=== PATIENT | male | born 1960 | race Caucasian/White ===

== ENCOUNTER 2025-05-27 16:41 | Inpatient (IN) | payer SELFPAY ==
--- OUTSIDE RECORDS SUMMARY | 2018-08-13 23:19 | XMS_ITS | Encounter Summary ---
Author Organization [employer] All iance Address [address] [place] [address] Care Team Providers Care Respiratory Care Technician Name Role Phone Add, Provider Not In System Primary Care Provide r Unavailable Add, Provider Not In System Unavailable Unav ailable Reason for Visit * Reason Comments Nausea NAUSEA ABDOMINAL VALE N Abdominal Pain Encounter Details Date Type Department Care Team (Late st Contact Info) Description 08/13/2018 11:19 PM EDT Emergency [facility] Emergency [address] [address] Frannie Wolf MD [address] [place] [address] Nausea with vomiting (Primary Dx); Epigastric pain; Essential (primary) hypertension; Cigarette nicotine dependence, uncomplicated; Other specified postprocedural states; Allergy status to other drugs, medicaments and biological substances status Social History Tobacco Use Types Packs/Day Years Used Date Smoking Tobacco: Former Cigarettes 0.5 40 Q uit: 2023 Passive Smoke Exposure: Past Smokeless Tobacco: Never Alcohol Use Standard Drinks/Week Comments Yes 0 (1 standard drink = 0.6 oz pure alcohol) States, I used to drink daily, but now I do it on occations. AUDIT-C Answer Date Recorded Frequency of Alcohol Consumption Never 07/29/2018 Average Number of Drinks Not on file 018 Frequency of Binge Drinking Not on file 07/13 Sex and Gender Information Value Date Recorded Sex Assigned at Not on file Legal Sex Male 9:56 AM EDT Gender Identity Male 11/07/2023 1:44 PM EST Sexual Orientation Straight 11/07/2023 1: 44 PM EST COVID-19 Exposure Response Date Recorded In the last 10 days, have yo u been in contact with someone who was confirmed or suspected to have Coronavirus/COVID-19? Unable to assess 01/29/2023 8:27 PM EDT documented as of this encounter Last Filed Vital Signs Vital Sign Reading Time Taken Comments Blood Pressure 111/70 08/14/2018 6:06 AM EDT Pulse 76 08/14/2018 6:06 AM EDT Temperature 36.5 C (97.7 F) 08/13/2018 11:25 PM EDT Respiratory Rate 20 08/14/2018 6:06 AM EDT Oxygen Saturation 100% 08/14/2018 6:06 AM EDT Inhaled Oxygen Concentration - - Weight 95.3 kg (210 lb) 08/13/2018 11:25 PM EDT Height - - Body Mass Index 31.93 04/19/2018 7:00 AM EDT documented in this encounter Functional Status * (RETIRED) Are you deaf or do you have difficulty hearing? Answer Date of Assessment Author No 04/19/2018 7:00 AM Berlin Fontenot RN * (RETIRED) Are you blind or do you have difficulty seeing? Answer Date of Assessment Author No 04/19/2018 7:00 AM Berlin Fontenot RN * (RETIRED) Do you have difficulty walking or climbing stairs? Answer Date of Assessment Author No 04/19/2018 7:00 AM Berlin Fontenot RN * (RETIRED) Do you have difficulty dressing or bathing? Answer Date of Assessment Author No 04/19/2018 7:00 AM Berlin Fontenot RN * (RETIRED) Because of a physical, mental, or emotional condition, do you have difficulty doing errands such as visiting a doctor's office or shopping? Answer Date of Assessment Author No 04/19/2018 7:00 AM Berlin Fontenot RN documented as of this encounter Mental Status * (RETIRED) Because of a physical, mental, or emotional condition, do you have serious difficulty concentrating, remembering, or making decisions? Answer Entry Date Author No 04/19/2018 7:00 AM Berlin Fontenot RN documented in this encounter ED Notes * Frannie Wolf MD - 08/13/2018 11:46 PM EDT The patient was seen primarily by me. ED nursing record was reviewed. Select prior records as available electronically through the Epic record were reviewed. HPI: Larry Doshi is a 57 year old male patient with h/o HTN, depression, bipolar, who presents withepigastric abdominal pain with nausea. Pain started suddenly this afternoon, an hour or so after eating prepared chicken in a box. He states he has been dry heaving several times since then, with epigastric pain. No associated vomiting, chest pain, shortness of breath. ROS: Pertinent positives were reviewed as per the HPI above. All other systems were reviewed and are negative. Larry Doshi Language of care: Occitan PCP: NON STAFF PROVIDER Mode of arrival to ED: Self. Arrival time: 08/13/2018 11:19 PM Chief complaint: Nausea (NAUSEA ABDOMINAL PAIN) and Abdominal Pain Past Medical History/Problem list: Past Medical History: No date: Bipolar disorder (HCC) No date: Depression No date: HTN (hypertension) No date: Musculoskeletal disorder No date: Odynophagia No date: Substance abuse (HCC) No date: Suicide and self-inflicted injury (HCC) No date: Wears eyeglasses Comment: glaucoma Patient Active Problem List: Mood altered (HCC) Alcohol abuse Hyperopia with astigmatism and presbyopia Depression Odynophagia Cocaine abuse (HCC) Essential hypertension Chronic pain of right knee Dyslipidemia Bipolar 2 disorder (HCC) Past Surgical History: Past Surgical History: No date: ANES NERVE MUSC TENDON FASCIA&BURSA KNEE&/POPLT Social History: Social History Socioeconomic History ??? Marital status: Single Spouse name: Not on file ??? Number of children: Not on file ??? Years of education: Not on file ??? Highest education level: Not on file Social Needs ??? Financial resource strain: Not on file ??? Food insecurity - worry: Not on file ??? Food insecurity - inability: Not on file ??? Transportation needs - medical: Not on file ??? Transportation needs - non-medical: Not on file Occupational History ??? Not on file Tobacco Use ??? Smoking status: Current Every Day Smoker Packs/day: 0.25 Types: Cigarettes Last attempt to quit: 02/15/2016 Years since quittin.4 ??? Smokeless tobacco: Never Used Substance and Sexual Activity ??? Alcohol use: Yes Alcohol/week: 6.0 oz Types: 5 Shots of liquor, 5 Cans of beer per week Frequency: Never Comment: Denies drinking last few months ??? Drug use: No Comment: Denies useage last 3 months ??? Sexual activity: Not Currently Other Topics Concern ??? Not on file Social History Narrative Homeless x 2 years Allergies: Review of Patient's Allergies indicates: Aripiprazole Anxiety Immunizations: There is no immunization history on file for this patient. Medications: Prior to Admission Medications Prescriptions Last Dose Informant Patient Reported? Taking? Atorvastatin Calcium (LIPITOR PO) Yes Yes Sig: Take by mouth HydrOXYzine Pamoate (VISTARIL PO) Yes Yes Sig: Take by mouth OXcarbazepine (TRILEPTAL) 150 MG tablet No Yes Sig: Take 1 tablet by mouth every morning OXcarbazepine (TRILEPTAL) 300 MG tablet No No Sig: Take 1 tablet by mouth nightly citalopram (CELEXA) 40 MG tablet Yes Yes Sig: Take 40 mg by mouth daily escitalopram (LEXAPRO) 10 MG tablet No No Sig: Take 1 tablet by mouth daily gabapentin (NEURONTIN) 300 MG capsule No No Sig: Take 2 capsules by mouth 3 (three) times daily gabapentin (NEURONTIN) 400 MG capsule No No Sig: Take 2 capsules by mouth 2 (two) times daily Patient taking differently: Take 600 mg by mouth 2 (two) times daily lisinopril (PRINIVIL,ZESTRIL) 10 MG tablet No Yes Sig: Take 1 tablet by mouth daily Patient taking differently: Take 20 mg by mouth daily Facility-Administered Medications: None Physical Exam (ED Bed SH ROOM 07/22): Patient Vitals for the past 99 hrs: BP Temp Pulse Resp SpO2 Weight 08/13/18 2325 112/85 97.7 ??F 86 20 100 % 95.3 kg (210 lb) GENERAL: WDWN, no acute distress, non-toxic appearance. SKIN: Slightly diaphoretic. HEAD: NCAT. PERRL, EOMI. Posterior pharynx is normal. Mildly dry mucous membranes. CHEST: Lungs are clear to auscultation bilaterally, without wheezing or rales. No chest wall tenderness. HEART: RRR. No murmurs. ABDOMEN: Soft, tender in the epigastrium only, nondistended. No involuntary guarding or rebound. EXTREMITIES: No obvious deformities. Warm and well perfused. No cyanosis, no edema. NEUROLOGIC: Alert, speaking in clear sentences, and moving all extremities. Normal gait without ataxia. PSYCHIATRIC: Appropriate for age, time of day, and situation. Medications Given in the ED: Medications lidocaine (XYLOCAINE) 2 % viscous solution 10 mL (10 mLs Mouth/Throat Given 08/14/18 0004) aluminum-magnesium hydroxide (MAALOX) 200-200 mg/5 mL suspension 30 mL (30 mLs Oral Given 08/14/18 0005) ondansetron (ZOFRAN) injection 4 mg (4 mg Intravenous Given 08/13/18 2344) Radiology Results: N/A Lab Results (abnormal results only): Labs Reviewed SERUM DRUG SCREEN - Abnormal; Notable for the following components: Result Value ETHANOL 14 (*) All other components within normal limits Narrative: Tests added: SDS by JAIR on 08/13/18 at 2351 by [email or web address]. BASIC METABOLIC PANEL Narrative: Tests added: SDS by JAIR on 08/13/18 at 2351 by [email or web address]. HOLD GREEN TOP TUBE HOLD PURPLE TOP TUBE LAB ADD ON/WRITE IN TEST Other Results (e.g. ECG): Normal sinus rhythm at 81. No acute ischemic changes. ED Course and Medical Decision-makin57 year old male patient with nausea and epigastric pain. I suspect symptoms are due to his food ingestion shortly prior to symptom onset. He was treated with antiemetics and antacids with significant improvement in discomfort. As he is a little diaphoretic with epigastric pain, EKG was obtained, though this is reassuring without any evidence of ischemia. He appears stable for discharge. Patient/family educated on diagnosis(es); he states understanding and agrees with plan of care. Reasons to return to the ED were reviewed in detail. He agrees with this plan and disposition. Condition on Discharge: Improved and Stable Diagnosis/Diagnoses: Non-intractable vomiting with nausea, unspecified vomiting type Discharge Prescriptions: New Prescriptions FAMOTIDINE (PEPCID) 20 MG TABLET Take 1 tablet by mouth 2 (two) times daily For stomach acid for 10days Frannie Wolf MD Attending Physician [facility] Department of Emergency Medicine This Emergency Department patient encounter note was created using voice- recognition software and in real time during the ED visit. documented in this encounter Miscellaneous Notes * Narrator Note - Amisha White RN - 08/14/2018 6:07 AM EDT Patient Disposition Patient education for diagnosis, medications, diet and follow-up with PCP. Return to ED for new, worsening or concerning symptoms. Patient left ED 6:07 AM. Patient received written instructions. Chyron Operator to provide instructions: No Patient belongings with patient: YES Have all existing LDAs been addressed? Yes Have all IV infusions been stopped? N/A Discharged to home. Pt ambulatory out of dept. * Narrator Note - Amisha White RN - 08/14/2018 6:05 AM EDT Pt woken for discharge assessment. Pt declined offer for fluids/food. VS obtained and IV removed. * Narrator Note - Amisha White RN - 08/14/2018 3:08 AM EDT Pt woke for VS. Pt states nausea and abdominal pain are resolved. Pt states I feel so much better. Pt requests to stay in ED until 5 am when buses are running. Pt provided with blankets and lights turned off. * Narrator Note - Amisha White RN - 08/14/2018 2:56 AM EDT Pt continues to rest quietly with eyes closed. Respirations regular, even and unlabored. Pt will continue to be monitored. * Narrator Note - Amisha White RN - 08/14/2018 1:40 AM EDT Pt resting quietly with eyes closed awaiting MD re-evaluation. * ED Triage Note - Amisha White RN - 08/13/2018 11:28 PM EDT Pt states he tae pre-prepared chicken this afternoon about 2 pm and about 4 pm began to nausea and intermittent abdominal cramping. Pt denies fever, vomiting or diarrhea. documented in this encounter Plan of Treatment Not on file documented as of this encounter Procedures Procedure Name Priority Date/Time Associated Diagnosis Comments EKG Routine 08/13/2018 11:38 PM EDT SERUM DRUG SCREEN Routine 08/13/2018 11: 32 PM EDT HOLD PURPLE TOP TUBE Routine 08/13/2018 11:32 PM EDT HOLD GREEN TOP TUBE Routine 08/13/2018 1 1:32 PM EDT BASIC METABOLIC PANEL Routine 08/13/2018 11:32 PM EDT documented in this encounter Results * EKG : Initial (08/13/2018 11:38 PM EDT) [place] [address] CARDIOVASCULAR LABORATORY [phone] PATIENT: KADE DOSHI : 1960 AGE: 57 SEX: M [place] [facility] [place] [id number] STATUS: DEP ER DATE: 08/13/18 09 ORD PHY: FRANNIE WOLF MD PCP: Report Status: Signed EKG REPORT Test Reason : Blood Pressure : / mmHG Vent. Rate : 081 BPM Atrial Rate : 081 BPM P-R Int : 174 ms QRS Dur : 084 ms QT Int : 394 ms P-R-T Axes : 042 030 000 degrees QTc Int : 457 ms Normal sinus rhythm Normal ECG When compared with ECG of 19-APR-2018 00:21, No significant change was found Referred By: FRANNIE WOLF Confirmed By:DANISH Tavarez t: ADAM Report #: [id number] CARDIOVASCULAR DEPARTMENT 08/13/2018 11:3 8 PM EDT 08/15/2018 9:21 AM EDT us Frannie Wolf MD RAD EKG OR DEVICE ORDERABLES Final Result [facility] RAD[facility]OLOG[facility] CARDIOVASCULAR DEPARTMENT * (ABNORMAL) Serum Drug Screen (08/13/2018 11:32 PM EDT) SALICYLATE < 2.8 2.8 - 20.0 mg/dL [facility] LABORATORY [facility] ACETAMINOPHEN < 2 10 - 30 ug/mL [facility] ETHANOL 14(H) 0 - 3 mg/dL [facility] LAB[facility] 08/13/2018 11:3 2 PM EDT 08/13/2018 11:47 PM EDT Narrative [facility] - 08/14/2018 12:10 AM EDT Tests added: SDS by JAIR on 08/13/18 at 2351 by [email or web address]. us Frannie Wolf MD LABORATORY Final Result [facility] [address] [place] [address], * Hold Purple Top Tube (08/13/2018 11:32 PM EDT) HOLD PURPLE TOP TUBE RECEIVED IN HEMATOL [facility] LABORATORY [facility] BLOOD SPECIMEN / Unknown 08/13/2018 11:32 PM EDT 08/13/2018 11:47 PM EDT us Frannie Wolf MD LABORATORY Final Result [address] [address], [place] * Hold Green Top Tube (08/13/2018 11:32 PM EDT) HOLD GREEN TOP TUBE RECEIVED IN CHEM [facility] BLOOD SPECIMEN / Unknown 08/13/2018 11:32 PM EDT 08/13/2018 11:47 PM EDT Frannie Wolf MD LABORATORY Final Result Performing Organization Address City/[facility]/ZIP Co de Phone Number [address] [address], [place] * Basic Metabolic Panel (08/13/2018 11:32 PM EDT) SODIUM 141 136 - 145 mmol/L [facility] POTASSIUM 4.6 3.5 - 5.1 mmol/L [facility] CHLORIDE 100 98 - 107 mmol/L [facility] CARBON DIOXIDE 26 21 - 32 mmol/L [facility] ANION GAP 15 5 - 15 mmol/L [facility] CALCIUM 9.0 8.5 - 10.1 mg/dL [facility] Glucose Random 88 74 - 160 mg/dL [facility] BUN (UREA NITROGEN) 17 7 - 18 mg/dL [facility] CREATININE 1.0 0.7 - 1.2 mg/dL [facility] ESTIMATED GLOMERULAR FILT RATE > 60 >60 ML/MIN [facility] Comment: The estimated GFR derived from the MDRD Study equation has not been validated for use with the elderly (over 70 years of age), women, patients with serious comorbid conditions, or persons with extremes of body size, muscle mass, or nutritional status. Application of the equation to these patient groups may lead to errors in GFR estimation. Serum specimen (specimen) BLOOD SPECIMEN / Unknown 08/13/2018 11:32 PM EDT 08/13/2018 11:47 PM EDT Narrative [facility] 08/14/2018 12:10 AM EDT Tests added: SDS by JAIR on 08/13/18 at 2351 by [email or web address]. us Frannie Wolf MD LABORATORY Final Result [facility] LABORATORY [address] [address], documented in this encounter Visit Diagnoses Diagnosis Nausea with vomiting- Primary Epigastric pain Abdominal pain, epigastric Essential (primary) hypertension Unspecified essential hypertension Cigarette nicotine dependence, uncomplicated Tobacco use disorder Other specified postprocedural states Allergy status to other drugs, medicaments and biological substances status documented in this encounter Administered Medications Inactive Administered Medications - up to 3 most recent administrations Medication Order MAR Action Action Date Dose Rate Site aluminum-magnesium hydroxide (MAALOX) 200-200 mg/5 mL suspension 30 mL 30 mL, Oral, ONCE, On Gem 08/13/18 at 2348, For 1 dose Given 08/14/2018 12:05 AM EDT 30 mLs lidocaine (XYLOCAINE) 2 % viscous solution 10 mL 10 mL, Mouth/Throat, ONCE, On Gem 08/13/18 at 2348, For 1 dose Given 08/14/2018 12:04 AM EDT 10 mLs ondansetron (ZOFRAN) injection 4 mg 4 mg, Intravenous, ONCE, On Gem 08/13/18 at 2348, For 1 dose Given 08/13/2018 11:44 PM EDT 4 mg documented in this encounter Active and Recently Administered Medications Additional Health Concerns Infection Onset Date Last Indicated Resolved Time Rule out Influenzae 11/13/2019 11/13/2019 11/13/19 20 6:32 PM EST Rule out COVID-19 05/20/2020 05/20/2020 05/20/2020 7:07 PM EDT Rule out COVID-19 01/13/2021 01/13/2021 01/13/2021 11:29 AM EDT Rule out COVID-19 01/13/2021 01/13/2021 01/13/2021 1:23 PM EDT Rule out COVID-19 02/23/2021 02/23/2021 02/23/2021 11:40 AM EDT Rule out COVID-19 03/27/2021 03/27/2021 03/27/2021 5:48 AM EDT Rule out RSV 01/16/2022 01/17/2022 01/17/2022 2:02 AM EDT Rule out Influenzae 01/16/2022 01/17/2022 01/18/20 2:02 AM EDT Rule out COVID-19 01/16/2022 01/17/2022 01/17/2022 2:02 AM EDT Rule out COVID-19 06/11/2022 06/11/2022 06/11/2022 8:58 PM EDT Rule out COVID-19 07/30/2022 07/30/2022 07/31/2022 12:12 AM EDT Rule out COVID-19 08/15/2022 08/15/2022 08/15/2022 1:25 PM EDT Rule out COVID-19 08/28/2022 08/28/2022 08/29/2022 2:05 AM EST Rule out COVID-19 09/01/2022 09/02/2022 09/02/2022 12:49 PM EST Rule out RSV 09/02/2022 09/02/2022 09/02/2022 1:12 PM EST Rule out Influenzae 09/02/2022 09/02/2022 09/02/20 1:12 PM EST Rule out COVID-19 09/02/2022 09/02/2022 09/02/2022 1:12 PM EST COVID-19 Comment:Pt test results reviewed and discussed with team, no signs or symptoms noted (per chart) will not require enhanced droplet precautions at this time. Please use standard precautions for all patient encounters. 09/05/2022 09/05/2022 09/06/2022 10:40 AM EST Rule out COVID-19 11/04/2022 11/04/2022 11/04/2022 5:42 PM EST Rule out COVID-19 11/22/2022 11/22/2022 11/23/2022 4:06 AM EST Rule out COVID-19 12/23/2022 12/23/2022 12/23/2022 1:02 PM EDT Rule out COVID-19 01/09/2023 01/09/2023 01/09/2023 3:10 AM EDT Rule out COVID-19 01/29/2023 01/29/2023 01/29/2023 11:11 AM EDT Rule out COVID-19 02/15/2023 02/15/2023 02/15/2023 9:22 AM EDT Rule out COVID-19 02/18/2023 02/18/2023 02/18/2023 10:32 PM EDT Rule out COVID-19 03/08/2023 03/08/2023 03/08/2023 11:05 AM EDT Rule out COVID-19 03/15/2023 03/15/2023 03/15/2023 5:08 AM EDT Rule out COVID-19 03/25/2023 03/25/2023 03/25/2023 5:41 PM EDT Rule out COVID-19 06/29/2023 06/29/2023 06/29/2023 11:58 AM EDT Rule out COVID-19 10/10/2023 10/10/2023 10/10/2023 9:58 PM EST Rule out COVID-19 11/07/2023 11/07/2023 11/07/2023 4:05 PM EST Rule out RSV 11/25/2023 11/25/2023 11/25/2023 6:00 AM EST Rule out Influenzae 11/25/2023 11/25/2023 11/25/19 6:00 AM EST Rule out COVID-19 11/25/2023 11/25/2023 11/25/2023 6:00 AM EST Rule out COVID-19 12/20/2023 12/20/2023 12/21/2023 1:49 AM EST Rule out COVID-19 01/16/2024 01/16/2024 01/16/2024 4:18 AM EDT Rule out COVID-19 01/29/2024 01/29/2024 01/29/2024 4:15 AM EDT Rule out COVID-19 02/14/2024 02/14/2024 02/14/2024 12:38 PM EDT Rule out COVID-19 03/11/2024 03/11/2024 03/11/2024 12:42 PM EDT Rule out COVID-19 05/18/2024 05/18/2024 05/18/2024 12:26 AM EDT Rule out COVID-19 06/08/2024 06/08/2024 06/09/2024 1:55 AM EDT COVID-19 Comment:Repeat antigen on June 17, 2024 negative. 06/08/2024 06/08/2024 06/17/2024 3:43 PM E DT Rule out COVID-19 06/09/2024 06/09/2024 06/09/2024 4:00 AM EDT Rule out COVID-19 06/17/2024 06/17/2024 06/17/2024 3:39 PM EDT documented as of this encounter Care Teams Respiratory Care Technician Relationship Specialty Start Date End Date Add, Provider Not In System PCP - General 01/07/1307/16 Add, Provider Not In System PCP - Insurance PCP 02/11/17 02/28/20 documented as of this encounter
--- OUTSIDE RECORDS SUMMARY | 2025-05-27 16:46 | XMS_ITS | Clinical Summary ---
Author Organization Leona Peñaloza [facility] Address [address] [place] [id number] Care Team Providers Care Automobile Service Writer Name Role Phone Minesh Lozoya MD Primary Care Provi jamin Minesh Lozoya MD Unavailable [phone] Peng Espitia MD Unavailable [phone] Sanya Kim MD Unavailable [phone] Amisha Rock MD Unavailable [phone] Allergies Active Allergy Reactions Criticality Noted Date Comments Aripiprazole Other (See Comments) 02/14/2018 States he felt terrible on it. Made me sick Unable to be more specific. Aripiprazole Unknown Reaction Type: AdvReac; Severity: Unknown Fluoxetine Unknown Reaction Type: AdvReac; Severity: Unknown Lamotrigine Other (See Comments) Medium 09/14/2021 Spacy feeling Olanzapine Other (See Comments) Medium 09/14/2021 Spacy feeling Fluoxetine Hallucinations 09/14/2019 It puts me on another planet. Risperidone Unknown Reaction Type: AdvReac; Severity: Unknown Risperidone Mental Status Change,Unknown,Other (See Comments) Low 06/06/2020 Other reaction(s): Drowsiness Altered mental status Altered mental status Level of certainty: Moderately Certain Identified As: From Risperdal Other Reaction(s): Anxiety Venlafaxine Unknown Reaction Type: Allergy; Severity: Unknown Medications * This document contains information received from the source organization and may not represent a complete record from that organization. celecoxib (CeleBREX) 100 MG capsuleIndicati ons:osteoarthri tis Take 1 capsule (100 mg total) by mouth 2 times a day as needed (osteoarthritis) . 30 capsule 4 Active DULoxetine (CYMBALTA) [address] capsule Take 2 capsules (120 mg total) by mouth daily. 30 capsule 4 Active folic acid (FOLVITE) 1 MG tablet Take 1 tablet (1 mg total) by mouth daily. 30 tablet 4 Active latanoprost (XALATAN) 0.005 % ophthalmic solution Administer 1 drop to both eyes at bedtime. 14 mL 4 Active lisinopriL (ZESTRIL) 20 MG tablet Take 1 tablet (20 mg total) by mouth daily. 15 tablet 4 Active rOPINIRole (REQUIP) 3 MG tablet Take 1 tablet (3 mg total) by mouth at bedtime. 15 tablet 4 Active atorvaSTATin (LIPITOR) 40 MG tablet Take 1 tablet (40 mg total) by mouth at bedtime. 1 Active lidocaine 4 % PtMd patch Place 2 patches on the skin daily. 28 patch 4 Active gabapentin (NEURONTIN) 400 MG capsule Take 1 capsule (400 mg total) by mouth 3 times a day. Active naltrexone ER (VivitroL) 380 mg SERR injection Inject 4 mL (380 mg total) into gluteal muscle once. . Administer deep IM into the gluteal muscle; must inject dose using one of the provided needles for administration. Use either the 1.5-inch needle (for very lean patients) or the 2-inch needle (for patients with a larger amount of subcutaneous tissue overlying the gluteal muscle). Active atorvaSTATin (LIPITOR) 40 MG tablet Take 1 tablet (40 mg total) by mouth at bedtime for 30 days. 30 tablet 4 Active celecoxib (CeleBREX) 100 MG capsule Take 1 capsule (100 mg total) by mouth every morning & every evening for 30 days. 60 capsule 4 Active DULoxetine (CYMBALTA) [address] capsule Take 1 capsule (60 mg total) by mouth every morning & every evening for 30 days. 60 capsule 4 Active latanoprost (XALATAN) 0.005 % ophthalmic solution Administer 1 drop to both eyes at bedtime for 30 days. 1 mL 4 Active propranoloL (INDERAL) 20 MG tablet Take 1 tablet (20 mg total) by mouth 3 times a day for 30 days. 90 tablet 4 Active rOPINIRole (REQUIP) 3 MG tablet Take 1 tablet (3 mg total) by mouth at bedtime for 30 days. 30 tablet 4 Active lisinopriL (ZESTRIL) 20 MG tablet Take 1 tablet (20 mg total) by mouth every morning for 30 days. 30 tablet 4 Active lidocaine (LMX) 4 % cream Apply one (1) application topically three times a day, as needed 30 g 11/07/2024 12:18 PM EST 5 Active Active Problems Problem Noted Date Diagnosed Date Severe episode of recurrent major depressive disorder, without psychotic features 09/20/2024 Alcohol dependency 09/20/2024 Depression 09/19/2024 Aneurysm of ascending aorta without rupture 06/14 Overview (10/28/2024): Needs dedicated imaging fall/winter 2024 Gastroesophageal reflux disease 06/18/2024 Cocaine abuse 04/24/2023 Nicotine dependence 04/24/2023 URI (upper respiratory infection) 04/24/2023 Allergic rhinitis 04/24/2023 Anxiety and depression 04/23/2023 Benzodiazepine abuse 11/30/2021 Severe episode of recurrent major depressive disorder, without psychotic features 09/13/2021 Unspecified mood (affective) disorder 11/08/2020 Anxiety disorder, unspecified 05/29/2020 Overview (06/30/2024): Add'l ICD-10 Code(s): F32.9 - Edited by NYASIA PURDY MD on 05/29/2020 Restless legs syndrome 05/23/2020 Mixed hyperlipidemia 05/23/2020 Primary osteoarthritis of both knees 09/15/2019 Substance induced mood disorder 09/14/2019 Cocaine abuse 12/17/2018 Alcohol use disorder, severe, dependence 016 Major depressive disorder, recurrent 10/06/2016 Essential hypertension 10/06/2016 Open-angle glaucoma 10/06/2016 Chronic obstructive pulmonary disease 05/06/2016 Resolved Problems Problem Noted Date Diagnosed Date Resolved Date COVID-19 04/18/2023 10/28/2024 Decreased visual acuity 05/23/202010/14 Overview (05/23/2020): Lost his prescription pair of eye glasses History of prolonged Q-T interval on ECG 09/15/2019 11/09/2020 Disease characterized by remigio truction of skeletal muscle 05/14/2019 10/28/2024 Overview (10/28/2024): Last Assessment & Plan: CPK continues to downtrend. Related to recent sun and heat exposure, alcohol and poor PO intake. -no need to trend further -holding statin Sepsis 05/13/2019 10/28/2024 Swelling of joint, knee, right 12/17/2018 11/09/2020 Suicide attempt 10/19/2018 10/28/2024 Overview (10/28/2024): Last Assessment & Plan: Patient reports several weeks of depression in the context of substance abuse and social stressors (homeless, finances). He has presented very frequently with SI and per last evaluation by psychiatry is at a chronically elevated risk for suicide given his prior attempts. - maintain section 12 - psych c/s: recommending inpt placement (he is medically cleared for this - spoke w Poison Control 11/9 AM who agrees usually ~8h monitoring, and he is past this) -could repeat EKG in AM tmw for qtc recheck, but has been <500 while here Lisinopril overdose: - monitor BMP bid for now (Cr mildly elevated at present) - monitor BP, IVFs prn or if unresponsive would need pressors Gabapentin overdose: - seizure precautions Atarax overdose: - Monitor for anticholinergic symptoms (tachycardia, urinary retention, mydriasis)- none thus far Encounters * This document contains information received from the source organization and may not represent a complete record from that organization. Date Type Department Care Team Description 05/04/2025 10:15 PM EDT - 05/05/2025 5:18 AM EDT Emergency [facility] Emergency Department [address] [place] [id number] Shahid Flores MD Anxiety and depression [F41.9, F32.A] (Primary Dx); Cocaine abuse (HCC) [F14.10]; Alcohol abuse [F10.10]; Alcohol use disorder; Substance use disorder Discharge Disposition: Home or Self Care 05/04/2025 Travel 04/30/2025 12:23 AM EDT - 04/30/2025 3:13 AM EDT Emergency [facility] Emergency Department [address] [address] Kaleigh Pickens MD Inflamed scrotum (Primary Dx) Discharge Disposition: Elopement 04/30/2025 Travel 04/19/2025 1:24 AM EDT - 04/19/2025 3:06 PM EDT Hospital Encounter [facility] Emergency Department [address] [place] [id number] Capo Erickson MD Ullman, Edward, MD Alcoholic intoxication without complication (HCC) (Primary Dx) Discharge Disposition: Elopement 04/17/2025 1:20 AM EDT - 04/18/2025 12:15 PM EDT Hospital Encounter [facility] Emergency Department [address] [address] Se Burris MD Fritz, Christie L, MD Brown, Taylor E, MD Tibbles, Carrie D, MD Simpson, Michael D, MD Kolikof, Joshua, MD Alcohol abuse with intoxication (HCC) (Primary Dx); Suicidal ideation Discharge Disposition: Home or Self Care 04/17/2025 Travel 04/04/2025 7:44 PM EDT - 04/05/2025 1:19 AM EDT Emergency [facility] Emergency Department [address] [place] [id number] Vicente Rodriguez MD Dagan, Alon, MD Unspecified depressive disorder (Primary Dx); Alcohol use disorder; Stimulant use disorder; Depression, unspecified depression type Discharge Disposition: Home or Self Care 04/04/2025 Travel from Last 3 Months Immunizations Immunization Administration Dates Next Due PPD Test 12/21/2018 Family History Medical History Relation Comments Alcohol abuse Father d.58 Depression Father COPD Mother d. 78 Depression Mother Substance Use Mother Relation Status Comments Father Mother Social History Tobacco Use Types Packs/Day Years Used Date Smoking Tobacco: Some Days Cigarettes 0.5 1.6 Started: 2023 Smokeless Tobacco: Never Tobacco Cessation:Ready to Q uit: No; Counseling Given: Yes Comments:Declines nicotine replacement Alcohol Use Standard Drinks/Week Comments Yes 6 (1 standard drink = 0.6 oz pure alcohol) Quart of vodka and six to eight beers once/twice a week Humiliation, Afraid, Rape, and Kick questionnair e Answer Date Recorded Within the last year, have y ou been afraid of your partner or ex-partner? Patient declined 04/17/2025 Emotionally Abused Not on file 04/17/2025 Physically Abused Not on file 04/17/2025 Sexually Abused Not on file 04/17/2025 Overall Financial Resource Strain (CARDIA) Answe r Date Recorded How hard is it for you to pa y for the very basics like food, housing, medical care, and heating? Patient declined 04/17/2025 Hunger Vital Sign Answer Date Recorded Within the past 12 months, y ou worried that your food would run out before you got the money to buy more. Patient declined Ran Out of Food in the Last Year Not on file 04/17/2025 PRAPARE - Transportation Answer Date Re corded In the past 12 months, has l ack of transportation kept you from medical appointments or from getting medications? Patient declined 04/17/2025 In the past 12 months, has l ack of transportation kept you from meetings, work, or from getting things needed for daily living? Patient declined 04/17/2025 Housing Stability Vital Sign Answer Ronny e Recorded In the last 12 months, was t here a time when you were not able to pay the mortgage or rent on time? Patient declined 04/17/20 25 Number of Times Moved in the Last Year Not on fi le 04/17/2025 At any time in the past 12 m [facility] [place], were you homeless or living in a [facility] (including now)? Patient declined 04/17/2025 [facility] Utilities Answer Date Recorded In the past 12 months has th e electric, gas, oil, or water company threatened to shut off services in your home? Patient declined 04/17/2025 Food Insecurity Answer Date Recorded Within the past 12 months, y ou worried that your food would run out before you got the money to buy more. Patient declined Ran Out of Food in the Last Year Not on file 04/17/2025 Intimate Partner Violence Answer Date R ecorded Emotionally Abused Not on file 04/17/2025 Within the last year, have y ou been afraid of your partner or ex-partner? Patient declined 04/17/2025 Physically Abused Not on file 04/17/2025 Sexually Abused Not on file 04/17/2025 Housing Stability Answer Date Recorded Unstable Housing in the Last Year Not on file 04/17/2025 In the last 12 months, was t here a time when you were not able to pay the mortgage or rent on time? Patient declined 04/17/20 25 [address] of Places Lived in the Last Year Not on f ile 04/17/2025 AUDIT C Answer Date Recorded How often have you had a dri nk containing alcohol, in the past year? 2 05/05/2025 How many standard drinks con taining alcohol have you had on a typical day when you are drinking, in the past year? 4 0 05/05/2025 How often have you had six o r more drinks on one occasion, in the past year? 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 Not on file Not on file N ot on file Last Filed Vital Signs Vital Sign Reading Time Taken Comments Blood Pressure 122/94 05/04/2025 9:44 PM EDT Pulse 92 05/04/2025 9:44 PM EDT Temperature 36.6 C (97.9 F) 05/04/2025 9:44 PM EDT Respiratory Rate 16 05/04/2025 9:44 PM EDT Oxygen Saturation 100% 05/04/2025 9:44 PM EDT Inhaled Oxygen Concentration - - Weight 90.7 kg (200 lb) 05/05/2025 1:12 AM EDT Height 175.3 cm (5' 9 ) 05/05/2025 1:12 AM EDT Body Mass Index 29.53 05/05/2025 1:12 AM EDT Plan of Treatment Health Maintenance Due Date Last Done Comments PSA 1962 Prostate Cancer Screening 1962 SDM 1962 Depression Screening 1966 Hepatitis C Screening 1980 Medicare Initial AWV [id number] 09/12/2005 CT Colonography 2007 Colonoscopy 2007 Colorectal Cancer Screening 2007 FIT 2007 FOBT 2007 Multitarget Stool DNA (Cologuard) 2007 Sigmoidoscopy 2007 Zoster Vaccine (1 of 2) 2012 Pneumococcal Vaccine: Pediatrics (0 to 5 Years) and At-Risk Patients (6 to 64 Years) (2 of 2 - PCV) 04/19/2014 04/19/2013 Pneumococcal Vaccine (2 of 2 - PCV) 04/19/2014 04/19/2013 COVID-19 Vaccine ( - season) 2024 08/06/2022, 12/19/2020 Influenza Vaccine (#1) 2025 , 07/07/2019, 08/25/2018, Additional history exists Lipid Panel 12/07/2025 12/07/2024, 12/0 06/2024, 01/29/2024, Additional history exists Blood Pressure 05/04/2026 05/04/2025 Hemoglobin A1c 12/07/2027 12/07/2024, 04/1 05/2024, 04/04/2023, Additional history exists DTaP,Tdap,and Td Vaccines (4 - Td or Tdap) 03/05/2028 03/05/2018, 07/18/2014, 06/24/2013 Meningococcal B Vaccines Aged Out No longer eligible based on patient's age to complete this topic Meningococcal Vaccines Aged Out No lo nger eligible based on patient's age to complete this topic Procedures Procedure Name Priority Date/Time Associated Diagnosis Comments CBC AND DIFFERENTIAL STAT 05/05/2025 1:42 AM EDT CBC AND DIFFERENTIAL STAT 05/05/2025 1:42 AM EDT COMPREHENSIVE METABOLIC PANEL STAT 05/05/2025 1:42 AM EDT TOXICOLOGY SCREEN, BLOOD STAT 05/05/2025 1:42 AM EDT DRUG SCREEN, URINE STAT 05/05/2025 1: 42 AM EDT POCI GLUCOSE Routine 04/19/2025 1:22 AM EDT SARS COV2/INFLUENZA A/B AND RSV STAT 04/17/2025 5:50 PM EDT DRUG SCREEN, URINE STAT 04/17/2025 4: 41 AM EDT CBC AND DIFFERENTIAL STAT 04/17/2025 1:58 AM EDT CBC AND DIFFERENTIAL STAT 04/17/2025 1:58 AM EDT TOXICOLOGY SCREEN, BLOOD STAT 04/17/2025 1:58 AM EDT BASIC METABOLIC PANEL STAT 04/17/2025 1:58 AM EDT DRUG SCREEN, URINE STAT 04/04/2025 8: 17 PM EDT CBC AND DIFFERENTIAL STAT 04/04/2025 8:04 PM EDT PHOSPHORUS Routine 04/04/2025 8:04 PM EDT MAGNESIUM Routine 04/04/2025 8:04 PM EDT CBC AND DIFFERENTIAL STAT 04/04/2025 8:04 PM EDT TOXICOLOGY SCREEN, BLOOD STAT 04/04/2025 8:04 PM EDT BASIC METABOLIC PANEL STAT 04/04/2025 8:04 PM EDT ECG 12-LEAD STAT 04/04/2025 8:00 PM EDT LIPID PANEL Routine 09/20/2024 7:46 AM EST HEMOGLOBIN, GLYCATED (CONVERSION) Routine 04/04/2023 7:23 PM EDT from Last 3 Months or Most Recently Relevant to Health Maintenance Results * (ABNORMAL) CBC and Differential (05/05/2025 1:42 AM EDT) Only the most recent of3 resultswithin the time period is included. WBC 6.34 4.00 - 10.00 K/uL 05/05/2025 1:48 AM [facility] RBC 3.85(L) 4.60 - 6.10 M/uL 05/05/2025 1:48 AM [facility] Hemoglobin 12.3(L) 13.7 - 17.5 g/dL 05/05/2025 1:48 AM [facility] Hematocrit 35.4(L) 40.0 - 51.0 % 05/05/2025 1:48 AM [facility] MCH 31.9 26.0 - 32.0 pg 05/05/2025 1:48 AM [facility] MCHC 34.7 30.5 - 35.8 g/dL 05/05/2025 1:48 AM [facility] MCV 92 82 - 98 fL 05/05/2025 1:48 AM [facility] RDW 14.2 10.5 - 15.5 % 05/05/2025 1:48 AM [facility] RDW-SD 47.5(H) 35.1 - 46.3 fL 05/05/2025 1:48 AM [facility] Platelet Count 163 150 - 400 K/uL 05/05/2025 1:48 AM [facility] MPV 9.4 8.3 - 12.4 fL 05/05/2025 1:48 AM [facility] Neutrophil 51.3 34.0 - 71.0 % 05/05/2025 1:48 AM [facility] Lymphocyte 30.1 19.0 - 53.0 % 05/05/2025 1:48 AM [facility] Monocyte 10.3 5.0 - 13.0 % 05/05/2025 1:48 AM [facility] Eosinophil 6.6 1.0 - 7.0 % 05/05/2025 1:48 AM [facility] Basophil 0.8 0.0 - 1.0 % 05/05/2025 1:48 AM [facility] Immature Granulocyte ([place], Myelo, Promyelocyte) 0.9 0.0 - 2.0 % 05/05/2025 1:48 AM [facility] Absolute Neutrophil Count 3.25 1.60 - 6.10 K/uL 05/05/2025 1:48 AM [facility] Absolute Immature Granulocyte ([place], Myelo, Promyelocyte) 0.06 0.00 - 0.80 K/uL 05/05/2025 1:48 AM [facility] Absolute Lymphocyte Count 1.91 1.20 - 3.70 K/uL 05/05/2025 1:48 AM [facility] Absolute Monocyte Count 0.65 0.20 - 0.80 K/uL 05/05/2025 1:48 AM [facility] Absolute Eosinophil Count 0.42 0.04 - 0.54 K/uL 05/05/2025 1:48 AM [facility] Absolute Basophil Count 0.05 0.01 - 0.08 K/uL 05/05/2025 1:48 AM [facility] Blood PERIPHERAL BLOOD SPECIMEN / Unknown Venipuncture / Unknown 05/05/2025 1:42 AM EDT 05/05/2025 1:45 AM EDT us Shahid Flores MD LAB BLOOD ORDERABLES Final Res ult [facility] [address] [place] [address], * (ABNORMAL) Plasma Toxicology Screen (05/05/2025 1:42 AM EDT) Only the most recent of3 resultswithin the time period is included. Acetaminophen Result,Blood <15 <30 ug/mL 05/05/2025 2:12 AM [facility] Alcohol 11(H) <10 mg/dL 05/05/2025 2:12 AM [facility] Salicylate Level, Blood <1(L) 3 - 20 mg/dL 05/05/2025 2:12 AM [facility] Blood PERIPHERAL BLOOD SPECIMEN / Unknown Venipuncture / Unknown 05/05/2025 1:42 AM EDT 05/05/2025 1:45 AM EDT us Shahid Flores MD LAB BLOOD ORDERABLES Final Res ult [facility] [address] [place] [address], * (ABNORMAL) Drug Screen, Urine (05/05/2025 1:42 AM EDT) Only the most recent of3 resultswithin the time period is included. Pathologist [facility] Amphetamines Screen, Urine Not Detected Not Detected 05/05/2025 1:53 AM [facility] Barbiturates Screen, Urine Not Detected Not Detected 05/05/2025 1:53 AM [facility] Benzodiazepine Screen, Urine Detected(A) Not Detected 05/05/2025 1:53 AM [facility] Cannabinoids Screen, Urine Not Detected Not Detected 05/05/2025 1:53 AM [facility] Cocaine Metabolite Screen, Urine Detected(A) Not Detected 05/05/2025 1:53 AM [facility] MDMA Urine Not Detected Not Detected 05/05/2025 1:53 AM [facility] Opiates Screen, Urine Not Detected Not Detected 05/05/2025 1:53 AM [facility] Oxycodone Screen, Urine Not Detected Not Detected 05/05/2025 1:53 AM [facility] Phencyclidine Screen, Urine Not Detected Not Detected 05/05/2025 1:53 AM [facility] Propoxyphene Screen, Urine Not Detected Not Detected 05/05/2025 1:53 AM [facility] Tricyclics Screen Not Detected Not Detected 05/05/2025 1:53 AM [facility] Urine URINE SPECIMEN / Unknown Collection / Unknown 05/05/2025 1:42 AM EDT 05/05/2025 1:45 AM [facility] - 05/05/2025 1:53 AM EDT Urine drug results are for screening purposes anly and should only be used for medical purposes. Positive results are not confirmed and should not be used for non-medical purposes. The following cut-offs are established for this assay: Acetaminophen/Paracetamol 5ug/mL Amphetamines 1000 ng/mL Methamphetamines 1000 ng/mL Barbiturates 300 ng/mL Benzodiazepines 300 ng/mL Cocaine 300 ng/mL Methadone 300 ng/mL MDMA 500 ng/mL Opiates 300 ng/mL Oxycodone 100 ng/mL Phenyclidine 25 ng/mL Propoxyphene 300 ng/mL THC 50 ng/mL Tricyclic Antidepressants 1000 ng/mL us Shahid Flores MD URINE ORDERABLES Final Result [facility] [address] [place] [address], * (ABNORMAL) Comprehensive Metabolic Panel (05/05/2025 1:42 AM EDT) Sodium 140 136 - 145 mmol/L 05/05/2025 2:07 AM [facility] Potassium 3.4(L) 3.5 - 5.4 mmol/L 05/05/2025 2:07 AM [facility] Chloride 102 98 - 107 mmol/L 05/05/2025 2:07 AM [facility] Total CO2/Bicarbonate 20(L) 22 - 32 mmol/L 05/05/2025 2:07 AM [facility] BUN 16 8 - 23 mg/dL 05/05/2025 2:07 AM [facility] Creatinine, Blood 0.62(L) 0.70 - 1.20 mg/dL 05/05/2025 2:07 AM [facility] Glucose, Blood 78 70 - 115 mg/dL 05/05/2025 2:07 AM [facility] Calcium 9.0 8.5 - 10.6 mg/dL 05/05/2025 2:07 AM [facility] Total Protein 6.5(L) 6.6 - 8.7 g/dL 05/05/2025 2:07 AM [facility] Albumin, Blood 4.0 3.5 - 5.2 g/dL 05/05/2025 2:07 AM [facility] AST (SGOT) 16 0 - 40 U/L 05/05/2025 2:07 AM [facility] ALT (SGPT) 12 0 - 40 U/L 05/05/2025 2:07 AM [facility] Alkaline Phosphatase 99 40 - 129 U/L 05/05/2025 2:07 AM [facility] Total Bilirubin 0.3 0.0 - 1.0 mg/dL 05/05/2025 2:07 AM [facility] Estimated GFR(CKD-EPI) 108 mL/min/BSA 05/05/2025 2:07 AM [facility] Blood PERIPHERAL BLOOD SPECIMEN / Unknown Venipuncture / Unknown 05/05/2025 1:42 AM EDT 05/05/2025 1:45 AM EDT us Shahid Flores MD LAB BLOOD ORDERABLES Final Res ult Performing Organization Address City/[facility] Co de Phone Number [facility] [address] [place] [address], * POCT Glucose (04/19/2025 1:22 AM EDT) Glucose, POC 80 50 - 140 mg/dL 04/19/2025 1:23 AM [facility] Comment: @Serial [id number] @Regulatory Product Manager [id number] Blood 04/19/2025 1:22 AM EDT 04/19/2025 1:23 AM EDT us Capo Erickson MD POCT ORDERABLES - DEVICE Fi nal Result [facility] [address] [place] [address], [place] * Respiratory Viral Panel, Rapid (Covid, Flu A/B and RSV) (04/17/2025 5:50 PM EDT) Coronavirus SARS-CoV-2 Negative Negative 04/17/2025 6:34 PM EDT [facility] Influenza A Negative Not Detected by PCR 04/17/2025 6:34 PM EDT [facility] Influenza B Negative Not Detected by PCR 04/17/2025 6:34 PM EDT [facility] RSV by PCR Negative Not Detected by PCR 04/17/2025 6:34 PM EDT [facility] Respiratory SWAB OF INTERNAL NOSE / Unknown Collection / Unknown 04/17/2025 5:50 PM EDT 04/17/2025 5:56 PM EDT Narrative [facility] - 04/17/2025 6:34 PM EDT Test performed by GeneXpert real-time PCR. us Merlene Wu MD BODY FLUIDS AND STOOLS ORDERAB LES Final Result Performing Organization Address City/[facility]/ZIP Co de Phone Number [facility] [address] [place] [address], [place] * (ABNORMAL) Basic Metabolic Panel (04/17/2025 1:58 AM EDT) Only the most recent of2 resultswithin the time period is included. Pathologist [facility] Sodium 142 135 - 147 mmol/L 04/17/2025 3:26 AM EDT [facility] Potassium 3.9 3.5 - 5.4 mmol/L 04/17/2025 3:26 AM EDT [facility] Chloride 106 96 - 108 mmol/L 04/17/2025 3:26 AM EDT [facility] Total CO2/Bicarbonat e 18(L) 22 - 32 mmol/L 04/17/2025 3:26 AM EDT [facility] Anion Gap 18 10 - 18 mmol/L 04/17/2025 3:26 AM EDT [facility] BUN 20 6 - 20 mg/dL 04/17/2025 3:26 AM EDT [facility] Creatinine, Blood 0.80 0.50 - 1.20 mg/dL 04/17/2025 3:26 AM EDT [facility] Glucose, Blood 74 70 - 100 mg/dL 04/17/2025 3:26 AM EDT [facility] Calcium 8.4 8.4 - 10.3 mg/dL 04/17/2025 3:26 AM EDT [facility] Estimated GFR(CKD-EPI) 100 mL/min/BSA 04/17/2025 3:26 AM EDT [facility] Blood PERIPHERAL BLOOD SPECIMEN / Unknown Venipuncture / Unknown 04/17/2025 1:58 AM EDT 04/17/2025 2:02 AM EDT us Se Burris MD LAB BLOOD ORDERABLES Final Re sult Performing Organization Address City/[facility]/ZIP Co de Phone Number [facility] [address] [place] [address], [place] * Phosphorus (04/04/2025 8:04 PM EDT) Phosphorus 3.6 2.7 - 4.5 mg/dL 04/04/2025 8:36 PM EDT [facility] Blood PERIPHERAL BLOOD SPECIMEN / Unknown Venipuncture / Unknown 04/04/2025 8:04 PM EDT 04/04/2025 8:08 PM EDT us Vicente Rodriguez MD LAB BLOOD ORDERABLES Final Re sult [facility] [address] [place] [address], [place] * Magnesium (04/04/2025 8:04 PM EDT) Magnesium, Blood 2.1 1.7 - 2.5 mg/dL 04/04/2025 8:36 PM EDT [facility] Blood PERIPHERAL BLOOD SPECIMEN / Unknown Venipuncture / Unknown 04/04/2025 8:04 PM EDT 04/04/2025 8:08 PM EDT us Vicente Rodriguez MD LAB BLOOD ORDERABLES Final Re sult [facility] [address] [place] [address], [place] * ECG 12 lead (04/04/2025 8:00 PM EDT) 04/04/2025 7:57 PM EDT Narrative [facility] ECG - 04/04/2025 8:00 PM EDT See ED note for ECG result information. us Vicente Rodriguez MD ECG ORDERABLES Final Result Performing Organization Address City/[facility] Co de Phone Number [facility] ECG * (ABNORMAL) Lipid Panel (09/20/2024 7:46 AM EST) Cholesterol 123 0 - 200 mg/dL 09/20/2024 11:20 AM EST [facility] Triglycerides 96 0 - 150 mg/dL 09/20/2024 11:20 AM EST [facility] HDL Cholesterol 44(L) >=60 mg/dL 11:20 AM EST [facility] LDL Cholesterol 60 mg/dL 11:20 AM EST [facility] Non-HDL Cholesterol 79 <190 mg/dL 09/20/2024 11:20 AM EST [facility] Comment: Normal primary prevention <190 mg/dL High risk primary prevention <160 mg/dL Secondary prevention <130 mg/dL High risk secondary prevention <100 mg/dL VLDL Cholesterol 19 8 - 71 mg/dL 09/20/2024 11:20 AM EST [facility] Ratio Chol/HDL 2.8 2.0 - 5.0 09/20/2024 11:20 AM EST [facility] Blood PERIPHERAL BLOOD SPECIMEN / Unknown Venipuncture / Unknown 09/20/2024 7:46 AM EST 09/20/2024 10:53 AM EST Mireya Connolly MD LAB BLOOD ORDERABLES Final Resul t [facility] [address] [place] [address], * HEMOGLOBIN, GLYCATED (CONVERSION) (04/04/2023 7:23 PM EDT) Hemoglobin A1C 4.8 4.000 - 6.000 % CONVERSION FROM [facility] Comment:A1c between 5.7-6.4 if confirmed is considered prediabetes, and..A1c >= 6.5 if confirmed is considered diabetes, according to the ADA..A1c treatment goals should be individualized. 04/04/2023 7:23 PM EDT 04/04/2023 9:41 PM EDT us Historical Conversion Provider LAB BLOOD JARETT SOLARES Final Result CONVERSION FROM [facility] from Last 3 Months or Most Recently Relevant to Health Maintenance Insurance Member Subscriber Plan / Payer (Ef fective 2022-Present) Name:Larry Doshi Relation to Subscriber:Self Name:Larry Doshi Payer ID:[id number] (NAIC) Type:Medicare / Managed Care Address: [address] MEDICARE Member Subscriber Plan / Payer (Ef fective 2022-) Name:Larry Doshi Relation to Subscriber:Self Name:Larry Doshi Payer ID:[id number] (NAIC) Type:Medicare / Managed Care Address: [address] MEDICARE MEDICARE MEDICARE MEDICARE Advance Directives * Full Code (Latest Code Status on File) Date Activated Date Inactivated Comments 10/27/2024 12:36 PM 11/28/2024 1:05 AM Question Answer Comments Discussed with/per: Patient * Full Code Date Activated Date Inactivated Comments 09/19/2024 2:34 PM 04/19/2025 1:08 AM Question Answer Comments Discussed with/per: Not Discussed Reason: Patient not on unit yet. * Full Code Date Activated Date Inactivated Comments 08/27/2024 2:35 PM 09/03/2024 11:47 PM Question Answer Comments Discussed with/per: Patient * Full Code Date Activated Date Inactivated Comments 01/24/2024 9:22 PM 03/13/2024 3:01 AM * Full Code Date Activated Date Inactivated Comments 04/23/2023 8:01 PM 01/24/2024 9:06 PM Care Teams Automobile Service Writer Relationship Specialty Start Date End Date Minesh Lozoya MD [address] [place] [address] PCP - General Internal Medicine 04/04/25 Peng Espitia MD [address] [place] [id number] PCP - Resident 07/10/23 Minesh Lozoya MD [address] [place] [address] 03/13/24 Sanya Kim MD [address] [place] [id number] Psychiatry 03/13/24 Amisha Rock MD [address] [address] Internal Medicine 03/13/24
--- OUTSIDE RECORDS SUMMARY | 2025-05-27 16:46 | XMS_ITS | Clinical Summary ---
Author Organization [facility] Address [address] [place] [address] Phone Care Team Providers Care Field Sales Representative Name Role Phone Required, No Pcp/Pcp Not Primary Care Provider U navailable Allergies Active Allergy Reactions Criticality Noted Date Comments Aripiprazole Anxiety,Altered Ment al State Medium 07/24/2017 Other reaction(s): Confusion, Other (See Comments) Altered mental status States he felt terrible on it. Made me sick Unable to be more specific. Fluoxetine Altered Mental State,Other (see comments) Low 07/17/2019 I felt like jumping out a window. Altered mental status It puts me on another planet. Lamotrigine Other (see comments) Medium 09/14/2021 Spacy feeling Altered mental status Olanzapine Other (see comments) Medium 09/14/2021 Spacy feeling Pollen Extract Medium 02/25/2013 Risperidone Altered Mental State,Other (see comments) 06/06/2020 Other reaction(s): Drowsiness Altered mental status Medications lisinopril (PRINIVIL,ZESTR IL) 20 MG tablet Take 20 mg by mouth daily Active latanoprost (XALATAN) 0.005 % ophthalmic solution Administer 1 drop into both eyes nightly 2 Active rOPINIRole (REQUIP) 3 MG tablet Take 3 mg by mouth nightly Active propranolol (INDERAL) 20 MG tablet Take 20 mg by mouth three times a day as needed Active celecoxib (CeleBREX) 100 MG capsule Take 100 mg by mouth two times a day Active atorvastatin (LIPITOR) 40 MG tablet Take 40 mg by mouth nightly 4 Active Ventolin HFA 108 (90 Base) MCG/ACT inhaler Inhale 2 puffs every four hours as needed for wheezing or shortness of breath 4 Active DULoxetine (CYMBALTA) 60 MG capsule Take 120 mg by mouth daily Take with 30 MG for total 90 MG 4 Active gabapentin (NEURONTIN) 400 MG capsule Take 400 mg by mouth three times a day 5 Active Active Problems Problem Noted Date Diagnosed Date Alcohol consumption binge drinking 11/30/2024 PTSD (post-traumatic stress disorder) 11/30/2024 Bipolar affective disorder, current episode depr essed 11/30/2024 Major depressive disorder, recurrent episode, mi ld 08/17/2024 Generalized anxiety disorder 08/17/2024 Severe major depression without psychotic featur es 01/05/2024 Gastroesophageal reflux disease 12/26/2023 Opioid dependence 12/26/2023 Seizure disorder 12/26/2023 Bipolar I disorder, current or most recent episode depressed, with psychotic features 08/15/2023 Severe recurrent major depre ssion without psychotic features 08/15/2023 Polysubstance abuse 08/15/2023 Cocaine use 06/18/2023 Severe recurrent major depre ssion without psychotic features 06/07/2023 Severe recurrent major depre ssion without psychotic features 03/02/2023 MDD (major depressive disorder), recurrent episo de, severe 10/23/2022 Major depressive disorder, severe 06/09/2022 Benzodiazepine abuse 11/30/2021 Malingering 09/11/2021 Overview (11/30/2024): [facility] discharge summary, 09/03/21: documented malingering. Refer to numerous APS notes, patient with long history of self presenting requesting inpatient psych and endorsing vague SI statements, irritable when asked to elaborate or engage in psychiatric interview beyond jargon/superficial symptoms of suicidal ideation. Strongly recommend high suspicion of malingered suicidal statements with intent to use inpatient psychiatric admission as vehicle for prison. Depression with suicidal ideation 06/07/2020 Anxiety 07/20/2019 Bipolar 2 disorder 12/31/2016 History of heroin abuse 09/09/2016 Chronic obstructive pulmonary disease 05/06/2016 Suicidal ideations 12/09/2015 Injury of head 07/18/2014 Essential (primary) hypertension 08/27/2013 Overview (06/07/2020): Regimen: lisinorpil 20 mg, furosemide Cardio protection with atorvastatin 40 mg Nicotine dependence, uncomplicated 01/04/2011 Glaucoma 12/31/2010 Overview (06/07/2020): [ ] ophthalmology referral pending,previously recommended for surgical procedure Major depressive disorder, single episode 2001 Social History Tobacco Use Types Packs/Day Years Used Date Smoking Tobacco: Every Day Smokeless Tobacco: Never Tobacco Cessation:Ready to Q uit: Not Asked; Counseling Given: Not Answered Alcohol Use Standard Drinks/Week Comments Yes 0 (1 standard drink = 0.6 oz pure alcohol) daily, last drink a couple of weeks ago Sex and Gender Information Value Date Recorded Sex Assigned at Not on file Legal Sex Male 11:13 PM EDT Gender Identity Not on file Sexual Orientation Not on file Last Filed Vital Signs Vital Sign Reading Time Taken Comments Blood Pressure 158/92 12/23/2024 12:48 PM EDT Pulse 88 12/23/2024 12:48 PM EDT Temperature 36.4 C (97.5 F) 12/23/2024 12:48 PM EDT Respiratory Rate 16 12/23/2024 12:48 PM EDT Oxygen Saturation 98% 12/23/2024 12:48 PM EDT Inhaled Oxygen Concentration - - Weight 88.9 kg (196 lb) 12/23/2024 2:38 AM EDT Height 175.3 cm (5' 9 ) 12/23/2024 2:38 AM EDT Body Mass Index 28.94 12/23/2024 2:38 AM EDT Plan of Treatment Health Maintenance Due Date Last Done Comments [facility] TOPIC SIGMOIDOSCOPY 1962 [facility] Topic HIV Screening 1962 [facility] Topic PSA 1962 [facility] Topic Tdap Vaccine (1 - Tdap) 1981 [facility] TOPIC FOBT/FIT TEST 2007 [facility] Topic Cologuard 2007 [facility] Topic Colon Cancer Screening 2007 [facility] Topic Colonoscopy 2007 [facility] Topic Lung Cancer Screening 2012 [facility] Topic Shingrix (1 of 2) 2012 [facility] Topic Pneumococcal Vaccine (HEDIS/Adult) (2 of 2 - PCV) 04/19/2014 04/19/2013 [facility] Topic Influenza (Flu) Seasonal (#1) 2025 07/07/2019, 08/25/2018, 07/24/2017, Additional history exists [facility] Topic Lipid Profile 12/07/202512/07, 01/29/2024, 11/02/2023, Additional history exists [facility] Topic Hepatitis C Screening Completed 12/03/2018 [facility] Topic HIB Vaccines Aged Out No longer eligible based on patient's age to complete this topic Insurance [facility] [employer] Advance Directives For more information, please contact: [phone] * Full Code (Latest Code Status on File) Date Activated Date Inactivated Comments 11/30/2024 3:14 PM 12/02/2024 1:10 PM Question Answer Comments Cardiopulmonary Resuscitatio n: for a patient in cardiac or respiratory arrest (Full Code = Attempt Resuscitation, DNR = Do not attempt resuscitation): Full Code Ventilation: for a patient in respiratory distre ss: Intubate and Ventilate * Full Code Date Activated Date Inactivated Comments 01/05/2024 1:50 PM 01/06/2024 4:03 PM Question Answer Comments Cardiopulmonary Resuscitatio n: for a patient in cardiac or respiratory arrest (Full Code = Attempt Resuscitation, DNR = Do not attempt resuscitation): Full Code Ventilation: for a patient in respiratory distre ss: Intubate and Ventilate * Full Code Date Activated Date Inactivated Comments 03/02/2023 9:15 AM 03/03/2023 1:21 PM Question Answer Comments Cardiopulmonary Resuscitatio n: for a patient in cardiac or respiratory arrest (Full Code = Attempt Resuscitation, DNR = Do not attempt resuscitation): Full Code Ventilation: for a patient in respiratory distre ss: Intubate and Ventilate * Full Code Date Activated Date Inactivated Comments 10/23/2022 9:07 PM 10/24/2022 4:49 PM Question Answer Comments Cardiopulmonary Resuscitatio n: for a patient in cardiac or respiratory arrest (Full Code = Attempt Resuscitation, DNR = Do not attempt resuscitation): Full Code Ventilation: for a patient in respiratory distre ss: Intubate and Ventilate * Full Code Date Activated Date Inactivated Comments 06/09/2022 11:43 AM 06/10/2022 4:19 PM Question Answer Comments Cardiopulmonary Resuscitatio n: for a patient in cardiac or respiratory arrest (Full Code = Attempt Resuscitation, DNR = Do not attempt resuscitation): Full Code Ventilation: for a patient in respiratory distre ss: Intubate and Ventilate Care Teams Field Sales Representative Relationship Specialty Start Date End Date Required, No Pcp/Pcp Not [address] [place] [address] PCP - General Hoop Coiling Machine Operator 05/06/18
--- OUTSIDE RECORDS SUMMARY | 2025-05-27 16:46 | XMS_ITS | Clinical Summary ---
Author Organization [facility] Address [address] [place] [address] Care Team Providers Care Workshop Manager Name Role Phone Pcp, No Primary Care Provider Unavailabl e Allergies Active Allergy Reactions Criticality Noted Date Comments Aripiprazole Altered Mental Status 05/13/2022 Fluoxetine Hcl Other (See Comments) 08/06/2021 Suicidal Ideation Risperidone And Paliperidone Dizziness 08/06/2021 Medications lisinopril 20 MG tablet Take 20 mg by mouth daily Active atorvastatin (LIPITOR) 40 MG tablet Take 40 mg by mouth daily Active gabapentin (NEURONTIN) 600 MG tablet Take 600 mg by mouth 3 (three) times a day while awake 0900, 1400 Active rOPINIRole (REQUIP) 3 MG tablet Take 3 mg by mouth at bedtime PRN Active latanoprost (XALATAN) 0.005 % ophthalmic solution Administer 1 drop to both eyes at bedtime Active hydrOXYzine (ATARAX) 50 MG tablet Take 50 mg by mouth every 4 (four) hours as needed for anxiety Active buPROPion (WELLBUTRIN XL) 300 MG extended release 24 hr tablet Take 300 mg by mouth every morning Last filled 03/28/22 for 30 days Active escitalopram (LEXAPRO) 20 MG tablet Take 20 mg by mouth daily Active diphenhydrAMINE (BENADRYL) 50 MG tablet Take 50 mg by mouth at bedtime Active Active Problems Problem Noted Date Diagnosed Date Suicidal ideation 08/06/2021 Social History Tobacco Use Types Packs/Day Years Used Date Smoking Tobacco: Former Smokeless Tobacco: Never Alcohol Use Standard Drinks/Week Comments Yes 6 (1 standard drink = 0.6 oz pur e alcohol) Sex and Gender Information Value Date Recorded Sex Assigned at Not on file Legal Sex Male 12:14 PM EDT Gender Identity Not on file Sexual Orientation Not on file Last Filed Vital Signs Vital Sign Reading Time Taken Comments Blood Pressure 137/80 05/15/2022 8:18 AM EDT Pulse 67 05/15/2022 8:18 AM EDT Temperature 35.9 C (96.7 F) 05/15/2022 8:18 AM EDT Respiratory Rate 17 05/15/2022 8:18 AM EDT Oxygen Saturation 99% 05/15/2022 8:18 AM EDT Inhaled Oxygen Concentration - - Weight 90.7 kg (200 lb) 05/13/2022 6:27 PM EDT Height 177.8 cm (5' 10 ) 05/13/2022 6:27 PM EDT Body Mass Index 28.7 05/13/2022 6:27 PM EDT Plan of Treatment Not on file Insurance [place] MEDICARE PART A&B [facility] Care Teams Workshop Manager Relationship Specialty Start [place] [id number] PCP - General 08/06/21
--- OUTSIDE RECORDS SUMMARY | 2025-05-27 16:46 | XMS_ITS | Clinical Summary ---
Author Organization [facility] Address [address] [place] [address] Care Team Providers Care Fur Stylist Name Role Phone Patient, Has No Pcp Or Ref Primary Care Provider Unavailable Allergies Active Allergy Reactions Criticality Noted Date Comments Fluoxetine Unknown 11/02/2023 Risperidone Unknown 11/02/2023 Medications * This document contains information received from the source organization and may not represent a complete record from that organization. rOPINIRole (REQUIP) 1 mg tablet Take 3 mg by mouth nightly as needed (Restless Legs). Active lisinopriL (PRINIVIL,ZESTR IL) 20 mg tablet Take 20 mg by mouth once a day. Active atorvastatin (LIPITOR) 40 mg tablet Take 40 mg by mouth nightly. Active lidocaine (LIDODERM) 5% patch Apply 1 patch topically to the affected area once a day. Remove and discard patch within 12 hours or as directed. Applay to lower back. Active gabapentin (NEURONTIN) 600 mg tablet Take 600 mg by mouth 3 times a day. Active hydrOXYzine HCL (ATARAX) 50 mg tablet Take 1 tablet (50 mg total) by mouth 2 times a day as needed for anxiety for up to 14 days. 28 tablet 4 Active Additional Information Patient not taking.Reported on 11/13/2024 latanoprost (XALATAN) 0.005% ophthalmic solution Instill 1 drop into both eyes nightly. Active DULoxetine DR (CYMBALTA) 60 mg capsule Take 120 mg by mouth once a day. 4 Active Active Problems Problem Noted Date Diagnosed Date Depression 11/02/2023 Social History Tobacco Use Types Packs/Day Years Used Date Smoking Tobacco: Some Days Cigarettes Tobacco Cessation:Ready to Q uit: No; Counseling Given: Not Answered Alcohol Use Standard Drinks/Week Comments Yes 5 (1 standard drink = 0.6 oz pur e alcohol) Sex and Gender Information Value Date Recorded Sex Assigned at Not on file Legal Sex Male 8:38 AM EDT Gender Identity Not on file Sexual Orientation Not on file Last Filed Vital Signs Vital Sign Reading Time Taken Comments Blood Pressure 105/75 11/14/2024 8:40 PM EST Pulse 89 11/14/2024 8:40 PM EST Temperature 36.2 C (97.2 F) 11/14/2024 8:40 PM EST Respiratory Rate 20 11/14/2024 8:40 PM EST Oxygen Saturation 96% 11/14/2024 8:40 PM EST Inhaled Oxygen Concentration - - Weight 88.5 kg (195 lb) 11/13/2024 4:27 AM EST Height 175.3 cm (5' 9 ) 11/13/2024 4:27 AM EST Body Mass Index 28.8 11/13/2024 4:27 AM EST Plan of Treatment Health Maintenance Due Date Last Done Comments Cologuard 1960 Colon Cancer Screening 1960 Colonoscopy 1962 FOBT / Fit Test 1962 HIV Screening [address] Lung Cancer Screening (Baseline) 2012 Zoster Vaccines (1 of 2) 2012 Pneumococcal Vaccine: 50+ Years (2 of 2 - PCV) 04/19/2014 04/19/2013 RSV Vaccine (60+ years old and patients) (1 - Risk 60-74 years 1-dose series) 2022 COVID-19 Vaccine (3 - season) 2024 08/06/2022, 12/19/2020 Alcohol/Substance Use Screening 10/13/2024 Depression Screening and Follow-Up 10/13/2024 Social Drivers of Health Annual Screening 10/13/2024 Influenza Vaccine (#1) 2025 8, 07/24/2017, 11/28/2015, Additional history exists Basic Metabolic Panel 11/14/2025 11/14/2024 , 11/03/2024, 10/28/2024, Additional history exists DTaP,Tdap,and Td Vaccines (4 - Td or Tdap) 03/05/2028 03/05/2018, 07/18/2014, 06/24/2013 Hepatitis B Vaccines Aged Out 11/19/2013, 06/24/2013, 04/19/2013 No longer eligible based on patient's age to complete this topic Hepatitis C Screening Completed 12/03/2018 Procedures * Due to [place] [email or web address] law, this organization might not be sharing negative HIV tests. Procedure Name Priority Date/Time Associated Diagnosis Comments COMPREHENSIVE METABOLIC PANEL STAT 11/14/2024 10:32 AM EST from Last 3 Months or Most Recently Relevant to Health Maintenance Results * Due to [place] [email or web address] law, this organization might not be sharing negative HIV tests. * (ABNORMAL) Comprehensive Metabolic Panel (11/14/2024 10:32 AM EST) NA 141 135 - 145 mmol/L 11/14/2024 11:02 AM EST [facility] K 3.9 3.5 - 5.3 mmol/L 11/14/2024 11:02 AM EST [facility] Cl 107 98 - 107 mmol/L 11/14/2024 11:02 AM EST [facility] CO2 24 22 - 32 mmol/L 11/14/2024 11:02 AM EST [facility] Anion Gap 10 5 - 15 11/14/2024 11:02 AM EST [facility] Glucose 133(H) 65 - 99 mg/dL 11/14/2024 11:02 AM EST [facility] Creatinine 0.71 0.60 - 1.30 mg/dL 11/14/2024 11:02 AM EST [facility] Calcium 8.7 8.6 - 10.5 mg/dL 11/14/2024 11:02 AM EST [facility] Total Protein 6.4 6.0 - 8.0 g/dL 11/14/2024 11:02 AM EST [facility] Albumin 3.8 3.5 - 5.2 g/dL 11/14/2024 11:02 AM EST [facility] Bilirubin, Total 0.3 0.2 - 1.2 mg/dL 11/14/2024 11:02 AM EST [facility] Alkaline Phosphatase 88 35 - 129 U/L 11/14/2024 11:02 AM EST [facility] AST 21 10 - 40 U/L 11/14/2024 11:02 AM EST [facility] ALT 15 10 - 40 U/L 11/14/2024 11:02 AM EST [facility] BUN 16 7 - 23 mg/dL 11/14/2024 11:02 AM EST [facility] eGFR >90 >=60 mL/min/1 .73m2 11/14/2024 11:02 AM EST [facility] Comment:The estimated glomer ular filtration rate (eGFR) is calculated using a new formula developed by the NKF-ASN task force to eliminate race-based correction factors. The new formula uses serum/plasma creatinine, age, and gender to determine eGFR. A value below 60mls/min might indicate kidney disease and will be flagged. For additional information, see Ry et al, Am J Kidney Dis. 2021;79(2):268- 288, A Unifying Approach for GFR estimation: Recommendations of the NKF-ASN Task Force on Reassessing the Inclusion of Race in Diagnosing Kidney Disease . Globulin, Total 2.6 2.1 - 4.2 g/dL 11/14/2024 11:02 AM EST [facility] A/G Ratio 1.5 1.5 - 3.0 11/14/2024 11:02 AM EST [facility] Blood Structure of peripheral vein / Unknown Venipuncture / Unknown 11/14/2024 10:32 AM EST 11/14/2024 10:36 AM EST us Nani Fragoso MD LAB BLOOD ORDERABLES Final Re sult [facility] [address] [place] [address], [place] from Last 3 Months or Most Recently Relevant to Health Maintenance Insurance [facility] Advance Directives * Full Code (Latest Code Status on File) Date Activated Date Inactivated Comments 11/02/2023 1:19 AM 11/06/2023 3:11 PM Care Teams Fur Stylist Relationship Specialty Start Date End Date Patient, Has No Pcp Or Ref DO NOT EDIT THIS RECORD VIA PROVIDER ON THE FLY PCP - General Knitting Machine Fixer 11/01/23
--- OUTSIDE RECORDS SUMMARY | 2025-05-27 16:46 | XMS_ITS | Clinical Summary ---
Author Organization [facility] Address [address] [place] [address] Care Team Providers Care Claim Review Medical Director Name Role Phone Unavailable Primary Care Provider Unavailabl e Social History Tobacco Use Types Packs/Day Years Used Date Smoking Tobacco: Every Day Sex and Gender Information Value Date Recorded Sex Assigned at Not on file Legal Sex Male 3:37 PM EST Gender Identity Not on file Sexual Orientation Not on file Plan of Treatment Not on file
[2025-05-27 17:14] VITALS: BMI 30.7
[2025-05-27 17:15] VITALS: BP 122/85; PULSE 81; RESP 20; TEMP 36.6; O2SAT 100
--- NOTE | 2025-05-27 18:31 | PC.ADMIT ---
This is the 1st admission for this 64 y.o. male [facility] [place] [facility] Arrived on unit at 1702 via ambulance from [facility] ED with Dx: Depressive D/O, unspecified at 1702. Reported using cane as outpt and accepted use of walker; 5 min checks unlocked bathroom ordered due to walker use. Signed CV after meeting with provider, Nemo Tapia. Presented to [facility] ED for evaluation of SI. Reported multiple life stressors, stating he felt stuck. Upon admission to this unit stated prolonged homelessness of 3 years is main stressor. Hx 1 suicide attempt 4 years ago by OD. Tox screen positive for cocaine, etoh <3. Reports monthly cocaine use, last use 05/24/25. Reports drinking 5-6 drinks of beer/vodka 2-3x week; last use 05/26/25. Denies etoh/cocaine cravings or withdrawal symptoms. States he has never experienced withdrawal seizure. Open to addictions counseling, order placed; CIWA ordered. Rates depression and anxiety #7 on scale 1-10(10 worse). Medical issues: HTN, arthritis, edema bilateral knees with hx knee surgery. Denies AH/VH currently. Reports AH last night telling him to harm self. Denies SI/HI at present time. Reports he smokes 5 cigarettes daily, declined NRT. Irritable initially upon entrance to unit, irritability declined during assessment. Alert and oriented to person, place and time. States he is here for mental health, clinical depression, anxiety and feelig overwhelmed.
[2025-05-27 19:38] VITALS: BP 140/74; PULSE 81; RESP 16; TEMP 37.2; O2SAT 100
[2025-05-28 07:56] VITALS: BP 137/85; PULSE 82; RESP 16; TEMP 36.9; O2SAT 97
[2025-05-28 09:43] LABS: Alanine Aminotransferase 23 U/L (0-40); Albumin Level 4.4 g/dL (3.5-5.0); Alkaline Phosphatase 90 U/L (39-117); Anion Gap 16 (12-20); Aspartate Amino Transferase 25 U/L (5-37); Blood Urea Nitrogen 15 mg/dL (9-16); Calcium 8.9 mg/dL (8.4-10.2); Carbon Dioxide 22 mmol/L (22-29); Chloride 108 mmol/L (96-108); Cholesterol 137 mg/dL (<200); Creatinine Clr Calc Pharmacy 133.6; Estimated Glomerular Filt Rate > 60; HDL Cholesterol 39 mg/dL (>40); Potassium 3.7 mmol/L (3.3-5.1); Sodium 142 mmol/L (135-145); Total Protein 6.9 g/dL (6.5-8.0); Triglycerides 198 mg/dL (<150)
[2025-05-28 10:01] LABS: Free T4 (Free Thyroxine) 0.98 ng/dL (0.71-1.85); Thyroid Stimulating Hormone 0.94 uIU/mL (0.32-4.0)
[2025-05-28 11:25] LABS: Hemoglobin A1C 105.8963 umol/L; Total Hemoglobin (HGBA1C) 3764.6576 umol/L
--- NOTE | 2025-05-28 12:30 | HO.PSYADMNOT ---
HPI Date of Service: 05/28/25 Chief Complaint: Depressive d/o HPI Narrative: per OSH ED eval, pt self-presented to fire station c/o SI; he reported having had 8 or 9 alcoholic drinks the same day. he was transferred to the ED for evaluation. on BH eval in ED, pt reported life stressors as important in his presentation, citing homelessness. he stated, i have a lot of issues and i feel like i'm stuck. he endorsed a sense of hopelessness and was unable to identify what prevented him from harming himself rather than presenting for help. he reported SI to senior clinician with thought of overdosing on Rx medications or jumping in front of a train. denied any intent. [place] [facility] described himself as in a situational depression. he identified the situation as homelessness and lack of social supports. he feels his anti-depressant regimen is generally fine and is not interested in modifying it. he is, however, interested in restarting naltrexone, which he has been on in the past, for AUD. he is also very keen on help getting into a rehab. he reports his mood has improved over the past several days, and he denies any SI presently. Past Psychiatric History: inpt: hospitalized 4 yrs ago at [facility] after SA SA: once via overdose on Rx meds about 4 years ago outpt: no current providers Medical Evaluation Reviewed: Yes [facility] Medical History (Updated 05/28/25 @ 18:39 by Marlon Blanco MD) HTN (hypertension) HLD (hyperlipidemia) Narrative: arthritis Family History: parents both had depression and AUD Social History: h/o working for the [employer] [place], eventually left and got on SSDI. older sister who is supportive but who lives in [place]. limited supports otherwise. Substance History: alcohol - regular heavy use cocaine - utox POS. reports sporadic use, however. Trauma History: deferred Diagnostics Vital Signs (24Hr): Vital Signs - 24 hr 05/27/25 17:15 05/27/25 19:38 05/28/25 07:56 Temperature 97.8 F 98.9 F 98.5 F Pulse Rate 81 81 82 Respiratory Rate 20 16 16 Blood Pressure 122/85 140/74 H 137/85 Pulse Oximetry 100 100 97 Oxygen Delivery Method Room Air Room Air Room Air BMI result Body Mass Index 30.7 Labs 05/28/25 08:36 Labs: Laboratory Results - last 48 hr 05/28/25 08:36 Sodium 142 Potassium 3.7 Chloride 108 Carbon Dioxide 22 Anion Gap 16 BUN 15 Creatinine 0.65 Estim Creat Clear Calc 133.6 Estimated GFR > 60 Random Glucose 94 Estimat Average Glucose 88 Hemoglobin A1c % 4.7 Calcium 8.9 Total Bilirubin 0.7 AST 25 ALT 23 Alkaline Phosphatase 90 Total Protein 6.9 Albumin 4.4 Triglycerides 198 H Cholesterol 137 LDL Cholesterol, Calc 59 HDL Cholesterol 39 L TSH 0.94 Free T4 0.98 Meds/Allergies Meds Home Medications ?Medication ?Instructions ?Recorded ?Confirmed ?Type atorvastatin 40 mg tablet 40 mg PO DAILY 05/27/25 05/27/25 History celecoxib 100 mg capsule 100 mg PO BID 05/27/25 05/27/25 History duloxetine 60 mg capsule,delayed 120 mg PO DAILY 05/27/25 05/27/25 History release hydroxyzine HCl 50 mg PO BEDTIME 05/27/25 05/27/25 History hydroxyzine HCl 25 mg tablet 25 mg PO TID 05/27/25 05/27/25 History lisinopril 20 mg tablet 20 mg PO DAILY 05/27/25 05/27/25 History ropinirole 1 mg tablet 1 mg PO BEDTIME 05/27/25 05/27/25 History Allergies Allergies Allergy/AdvReac Type Severity Reaction Status Date / Time No Known Allergies Allergy Verified 05/27/25 17:15 Mental Status Exam Mental Status Exam Narrative: adequately dressed and groomed. cooperative. no PMA/PMR. speech nml rate, amount, loudness, tone, latency. thoughts linear and logical. affect constricted, normo-intense, non-labile. mood i feel better than the last few days. denies SI/HI/AVH. Assessment & Plan Assessment & Plan (1) Depression, unspecified: Status: Acute Code(s): F32.A - Depression, unspecified (2) Alcohol use disorder: Status: Acute Code(s): F10.90 - Alcohol use, unspecified, uncomplicated (3) Cocaine use disorder: Status: Acute Code(s): F14.10 - Cocaine abuse, uncomplicated Plan continue cymbalta for depression and anxiety. start naltrexone for AUD abstain from cocaine referral for rehab Patient educated on: diagnosis, medication risk/benefits and substance abuse Reason for continued inpatient stay Substantial Risk for: harm to self and inability to function Statement Statement: I have reviewed the history and physical and performed a pertinent examination on my patient. No changes have occurred unless specified. If the History and Physical was not performed prior to admission, the Hospitalist's service will be consulted for completing the admission physical. Time Spent With Patient Time: Total time managing care of this patient today __55__ minutes.
--- NOTE | 2025-05-28 14:40 | HO.PM.IMCN ---
History of Present Illness Data of Consult Service Date: 05/28/25 Primary Care Provider: Unknown Physician HPI 64 year old male with with HNT takes Lisinopril, HLD on Lipitor, chronic unsteady gait uses cane/walker, homelesness, history of stubstance uses cocain, drinks alcohol 5-6 beer and vodak up to 3 times a week, has history suicide attempt by overdose about 4 years. He is presently admitted for management of worsening depressive symptoms. He identifies no acute medical issues at the present. He has no chest pain, no sob, no abdominal pain, and stigmata of alcohol withdrawal. Actively no SI/HI Review of Systems Review of Systems: as above otherwise negative. [facility] Medical History (Updated 05/28/25 @ 14:41 by Satya Ravi MD) HTN (hypertension) HLD (hyperlipidemia) Social History Household Members: None Housing: Homeless Do you presently have visiting nurse or other home services: No Comment: 5 min checks Patient Tobacco Use Status: Current everyday Tobacco user Tobacco use type: Cigarette Cigarettes Per Day: 5 Years Smoked: 30 Smoked in Last 30 Days: Yes e-Cigarette/Vaping Use: Former Use Patient Interested in Nicotine Replacement: No Patient Given Instructions on How to Stop Smoking: No (declined) Second Hand Smoke Exposure: No Currently Displaying Signs/Symptoms of Drug Intoxication Withdrawal: No Have you been hit, kicked, punched, or otherwise hurt by someone within the past year? If so, by whom?: No Do you feel safe in your current relationship?: Yes Is there a partner from a previous relationship who is making you feel unsafe now?: No Are you made to feel afraid or neglected: No Advance Directives: No Advance Directives Information Provided: Yes Do you have thoughts of harming others: None Do you have a plan to hurt others: No Plan Recently lost weight without trying: No Eating poorly because of decreased appetite: No Nutrition Risks: No Nutritional Risk Poor oral hygiene: No Meds Allergies Allergy/AdvReac Type Severity Reaction Status Date / Time No Known Allergies Allergy Verified 05/27/25 17:15 Active Medications: Current Medications Acetaminophen (Acetaminophen 325 Mg Tablet) 650 mg PO Q6H PRN PRN Reason: Headache/Pain, Scale 1-10 Last Admin: 05/28/25 08:56 Dose: 650 mg Al Hydroxide/Mg Hydroxide (Magnesium Hydrox/Alum Hydrox 30 Ml Oral.Susp) 30 ml PO Q6H PRN PRN Reason: Heartburn/Nausea Atorvastatin Calcium (Atorvastatin Calcium 40 Mg Tablet) 40 mg PO DAILY [facility] Last Admin: 05/28/25 08:49 Dose: 40 mg Celecoxib (Celecoxib 100 Mg Capsule) 100 mg PO BID [facility] Last Admin: 05/28/25 08:49 Dose: 100 mg Clonidine HCl (Clonidine Hcl 0.1 Mg Tablet) 0.1 mg PO TID PRN; Protocol PRN Reason: W/D symptoms Duloxetine HCl (Duloxetine Hcl 60 Mg Capsule.Dr) 120 mg PO DAILY [facility] Last Admin: 05/28/25 08:49 Dose: 120 mg Hydroxyzine HCl (Hydroxyzine Hcl 25 Mg Tablet) 25 mg PO Q6H PRN PRN Reason: mild anxiety Hydroxyzine HCl (Hydroxyzine Hcl 25 Mg Tablet) 25 mg PO TID [facility] Last Admin: 05/28/25 08:49 Dose: 25 mg Hydroxyzine HCl (Hydroxyzine Hcl 50 Mg Tablet) 50 mg PO BEDTIME [facility] Last Admin: 05/27/25 22:53 Dose: 50 mg Lisinopril (Lisinopril 20 Mg Tablet) 20 mg PO DAILY [facility]; Protocol Last Admin: 05/28/25 08:49 Dose: 20 mg Lorazepam (Lorazepam 1 Mg Tablet) 1 mg PO Q2H PRN PRN Reason: CIWA 8-11 Last Admin: 05/28/25 08:56 Dose: 1 mg Lorazepam (Lorazepam 1 Mg Tablet) 2 mg PO Q2H PRN PRN Reason: CIWA 12-15 Magnesium Hydroxide (Milk Of Magnesia 30 Ml Oral.Susp) 30 ml PO DAILY PRN PRN Reason: Constipation Nicotine (Nicotine 21 Mg Patch.Td24) 21 mg TRANSDERMA DAILY PRN PRN Reason: nicotine craving Nicotine Polacrilex (Nicotine Polacrilex 2 Mg Gum) 2 mg BUCCAL Q2H PRN PRN Reason: Nicotine Cravings Olanzapine (Olanzapine 5 Mg Tablet) 5 mg PO BID PRN PRN Reason: agitation Ropinirole HCl (Ropinirole Hcl 1 Mg Tablet) 1 mg PO BEDTIME [facility] Last Admin: 05/27/25 22:53 Dose: 1 mg Thiamine HCl (Thiamine Hcl 100 Mg Tablet) 100 mg PO DAILY [facility] Last Admin: 05/28/25 08:49 Dose: 100 mg Trazodone HCl (Trazodone Hcl 50 Mg Tablet) 50 mg PO BEDTIME MRX1 PRN PRN Reason: Insomnia Home Medications ?Medication ?Instructions ?Recorded ?Confirmed ?Last Taken ?Type atorvastatin 40 mg tablet 40 mg PO DAILY 05/27/25 05/27/25 Unknown History celecoxib 100 mg capsule 100 mg PO BID 05/27/25 05/27/25 Unknown History duloxetine 60 mg capsule,delayed 120 mg PO DAILY 05/27/25 05/27/25 Unknown History release hydroxyzine HCl 50 mg PO BEDTIME 05/27/25 05/27/25 Unknown History hydroxyzine HCl 25 mg tablet 25 mg PO TID 05/27/25 05/27/25 Unknown History lisinopril 20 mg tablet 20 mg PO DAILY 05/27/25 05/27/25 Unknown History ropinirole 1 mg tablet 1 mg PO BEDTIME 05/27/25 05/27/25 Unknown History Physical Exam Vital Signs and Narrative: Vital Signs: Last Vital Signs Temp 98.5 F 05/28/25 07:56 Pulse 82 05/28/25 07:56 Resp 16 05/28/25 07:56 BP 137/85 05/28/25 07:56 Pulse Ox 97 05/28/25 07:56 O2 Del Method Room Air 05/28/25 07:56 BMI result Body Mass Index 30.7 Const: Other: General: AO X 3, no acute distress Resp: CTA bilateral CVS: S1,S2,RRR GI: +BS, NT, no distention Skin: No rash Neuro: motor grossly intact, CN 2 to 12 normal Psych: appropriate affect Results Labs 05/28/25 08:36 Labs: Laboratory Results - last 24 hr 05/28/25 08:36 Anion Gap 16 Estim Creat Clear Calc 133.6 Estimated GFR > 60 Random Glucose 94 Estimat Average Glucose 88 Hemoglobin A1c % 4.7 Calcium 8.9 Total Bilirubin 0.7 AST 25 ALT 23 Alkaline Phosphatase 90 Total Protein 6.9 Albumin 4.4 Triglycerides 198 H Cholesterol 137 LDL Cholesterol, Calc 59 HDL Cholesterol 39 L TSH 0.94 Free T4 0.98 Assessment and Plan (1) HTN (hypertension): Status: Acute (2) HLD (hyperlipidemia): Status: Acute Plan 64 year old male with with HNT takes Lisinopril, HLD on Lipitor, chronic unsteady gait uses cane/walker, homelesness, history of stubstance uses cocain, drinks alcohol 5-6 beer and vodak up to 3 times a week, has history suicide attempt by overdose about 4 years. He is presently admitted for management of worsening depressive symptoms. He identifies no acute medical issues at the present. He has no chest pain, no sob, no abdominal pain, and stigmata of alcohol withdrawal. Actively no SI/HI Plan: Has no acute medical issues as cause of his present depressive symptoms, routine labs, BMP, lipids review, TG a bit high, HDL low, and LDL is high--these can be addressed on outpatient basis. A1C is normal and normal TSH is normal. For now continue Lisinopril for HTN which is controlled and continue Lipitor for Lipitor lowering.
[2025-05-28 19:39] VITALS: BP 126/75; PULSE 79; RESP 16; TEMP 36.9; O2SAT 98
[2025-05-28] MEDS: Latanoprost 0.005 % Ophth Sol 2.5 ML DROPS 1 DROP EYE-BOTH (21:29)
[2025-05-29 08:00] VITALS: BP 124/72; PULSE 76; RESP 16; TEMP 36.6; O2SAT 95
[2025-05-29] MEDS: Trolamine Salicylate 10 % Cream 85 GM TUBE 1 APPL TOPICAL ×2 (12:24→21:18)
--- NOTE | 2025-05-29 14:16 | MHC.RECOVRN ---
Met with Larry in [id number] to discuss recent recurrence on EtOH and recovery supports. Pt stated he has been utilizing AA and typically does not drink daily. States he goes on binges though. Pt originally from the [facility] and declined outpatient YVETTE appointment for tx of his AUD at the [facility]. Pt agreed to speak with the Addiction Medicine provider in regards to PETER initiation. Provider MQ made aware. Written materials provided on recovery supports and resources, pt considering attending a CSS program near the [facility] for further treatment. Pt planning on reviewing the material and collaborating with for placement. Pt provided with ACS team contact info and encouraged to reach out for any questions or concers. No further questions or concerns offered at this time. Will continue to monitor and f/u as needed. Discussed with Francisca Whatley NP.
--- NOTE | 2025-05-29 16:45 | HO.PSYCHPN ---
Subjective Subjective Date of Service: 05/29/25 Reason For Visit: Depressive d/o Interim History: resting in bed, tired. c/o some withdrawal Sx such as sweating and shaking. also c/o knee pain and depression. per staff, CIWAs 10, 1, 4, 0, 0. no other notable events or behaviors. Mental Status Exam Mental Status Exam Narrative: adequately dressed and groomed. cooperative. no PMA/PMR. speech nml rate, amount, loudness, tone, latency. thoughts linear and logical. affect constricted, normo-intense, non-labile. mood improved. denies SI/HI/AVH. Diagnostics Vital Signs (24Hr): Vital Signs - 24 hr 05/28/25 19:39 05/29/25 08:00 Temperature 98.4 F 97.8 F Pulse Rate 79 76 Respiratory Rate 16 16 Blood Pressure 126/75 124/72 Pulse Oximetry 98 95 Oxygen Delivery Method Room Air Room Air BMI result Body Mass Index 30.7 Labs 05/28/25 08:36 Labs: Laboratory Results - last 48 hr 05/28/25 08:36 Sodium 142 Potassium 3.7 Chloride 108 Carbon Dioxide 22 Anion Gap 16 BUN 15 Creatinine 0.65 Estim Creat Clear Calc 133.6 Estimated GFR > 60 Random Glucose 94 Estimat Average Glucose 88 Hemoglobin A1c % 4.7 Calcium 8.9 Total Bilirubin 0.7 AST 25 ALT 23 Alkaline Phosphatase 90 Total Protein 6.9 Albumin 4.4 Triglycerides 198 H Cholesterol 137 LDL Cholesterol, Calc 59 HDL Cholesterol 39 L TSH 0.94 Free T4 0.98 Medications Medications Current Medications Acetaminophen (Acetaminophen 325 Mg Tablet) 650 mg PO Q4H PRN PRN Reason: Headache/Pain, Scale 1-10 Last Admin: 05/29/25 11:26 Dose: 650 mg Al Hydroxide/Mg Hydroxide (Magnesium Hydrox/Alum Hydrox 30 Ml Oral.Susp) 30 ml PO Q6H PRN PRN Reason: Heartburn/Nausea Albuterol Sulfate (Albuterol Sulfate 90 Mcg 8 Gm Inhaler) 1 puff INHALE RQ4H PRN PRN Reason: Shortness of Breath Atorvastatin Calcium (Atorvastatin Calcium 40 Mg Tablet) 40 mg PO DAILY [facility] Last Admin: 05/29/25 08:24 Dose: 40 mg Celecoxib (Celecoxib 100 Mg Capsule) 100 mg PO BID [facility] Last Admin: 05/29/25 08:24 Dose: 100 mg Clonidine HCl (Clonidine Hcl 0.1 Mg Tablet) 0.1 mg PO TID PRN; Protocol PRN Reason: W/D symptoms Duloxetine HCl (Duloxetine Hcl 60 Mg Capsule.Dr) 120 mg PO DAILY [facility] Last Admin: 05/29/25 08:24 Dose: 120 mg Hydroxyzine HCl (Hydroxyzine Hcl 50 Mg Tablet) 50 mg PO BEDTIME [facility] Last Admin: 05/28/25 21:29 Dose: 50 mg Hydroxyzine HCl (Hydroxyzine Hcl 50 Mg Tablet) 50 mg PO BID PRN PRN Reason: anxiety Latanoprost (Latanoprost 0.005 % Ophth Arabella 2.5 Ml Drops) 1 drop EYE-BOTH BEDTIME [facility] Last Admin: 05/28/25 21:29 Dose: 1 drop Lisinopril (Lisinopril 20 Mg Tablet) 20 mg PO DAILY [facility]; Protocol Last Admin: 05/29/25 08:24 Dose: 20 mg Magnesium Hydroxide (Milk Of Magnesia 30 Ml Oral.Susp) 30 ml PO DAILY PRN PRN Reason: Constipation Naltrexone HCl (Naltrexone Hcl 50 Mg Tablet) 50 mg PO DAILY [facility] Last Admin: 05/29/25 08:24 Dose: 50 mg Nicotine (Nicotine 21 Mg Patch.Td24) 21 mg TRANSDERMA DAILY PRN PRN Reason: nicotine craving Nicotine Polacrilex (Nicotine Polacrilex 2 Mg Gum) 2 mg BUCCAL Q2H PRN PRN Reason: Nicotine Cravings Olanzapine (Olanzapine 5 Mg Tablet) 5 mg PO BID PRN PRN Reason: agitation Ropinirole HCl (Ropinirole Hcl 1 Mg Tablet) 1 mg PO BEDTIME [facility] Last Admin: 05/28/25 21:29 Dose: 1 mg Thiamine HCl (Thiamine Hcl 100 Mg Tablet) 100 mg PO DAILY [facility] Last Admin: 05/29/25 08:24 Dose: 100 mg Trazodone HCl (Trazodone Hcl 50 Mg Tablet) 50 mg PO BEDTIME MRX1 PRN PRN Reason: Insomnia Trolamine Salicylate (Trolamine Salicylate 10 % Cream 85 Gm Tube) 1 appl TOPICAL QID PRN; Protocol PRN Reason: knee pain Last Admin: 05/29/25 12:24 Dose: 1 appl Allergies Allergies Allergy/AdvReac Type Severity Reaction Status Date / Time No Known Allergies Allergy Verified 05/27/25 17:15 Assessment & Plan Assessment & Plan (1) Depression, unspecified: Status: Acute Code(s): F32.A - Depression, unspecified (2) Alcohol use disorder: Status: Acute Code(s): F10.90 - Alcohol use, unspecified, uncomplicated (3) Cocaine use disorder: Status: Acute Code(s): F14.10 - Cocaine abuse, uncomplicated Plan 05/28: continue cymbalta for depression and anxiety. start naltrexone for AUD. abstain from cocaine. referral for rehab. 05/29: [facility] with ativan protocol; pt has needed only 1 mg of ativan in more than 24H in the hospital, so no taper is warranted. stable otherwise. continue current mgmt. Reason for continued inpatient stay Substantial Risk for: inability to function Time Spent With Patient Time: Total time managing care of this patient today ____ minutes.
[2025-05-29 20:00] VITALS: BP 124/86; PULSE 86; RESP 16; TEMP 36.8; O2SAT 99
[2025-05-29] MEDS: Latanoprost 0.005 % Ophth Sol 2.5 ML DROPS 1 DROP EYE-BOTH (21:18)
[2025-05-30 07:35] VITALS: BP 131/74; PULSE 83; RESP 14; TEMP 36.9; O2SAT 97
[2025-05-30 08:15] VITALS: BP 131/74
--- NOTE | 2025-05-30 11:06 | HO.PSYCHPN ---
Subjective Subjective Date of Service: 05/30/25 Reason For Visit: Depressive d/o Subjective Notes: Conditional Voluntary Interim History: Laying in bed. Patient reports feeling depressed but feel like I'm getting better . He reports sleeping well last night. Would like to go to a substance program after discharge; social media designer aware. showered. denies SI/HI/VH/AH. Continue current tx plan. Medication Compliance: Yes Side effects from medications: No Attending Groups: No Mental Status Exam Mental Status Exam Narrative: Pt is alert and oriented; behavior is cooperative and calm; dressed in casual attire; mood is described as getting better ; eye contact appropriate; Speech is normal rate, volume and not pressured; thought process is organized; Thought content is on tx; denies SI/HI/VH/AH. Diagnostics Vital Signs (24Hr): Vital Signs - 24 hr 05/29/25 20:00 05/30/25 07:35 05/30/25 08:15 Temperature 98.2 F 98.4 F Pulse Rate 86 83 Respiratory Rate 16 14 Blood Pressure 124/86 131/74 131/74 Pulse Oximetry 99 97 Oxygen Delivery Method Room Air Room Air BMI result Body Mass Index 30.7 Labs 05/28/25 08:36 Labs: Laboratory Results - last 48 hr 05/28/25 08:36 Estimat Average Glucose 88 Hemoglobin A1c % 4.7 Medications Medications Current Medications Acetaminophen (Acetaminophen 325 Mg Tablet) 650 mg PO Q4H PRN PRN Reason: Headache/Pain, Scale 1-10 Last Admin: 05/30/25 08:15 Dose: 650 mg Al Hydroxide/Mg Hydroxide (Magnesium Hydrox/Alum Hydrox 30 Ml Oral.Susp) 30 ml PO Q6H PRN PRN Reason: Heartburn/Nausea Albuterol Sulfate (Albuterol Sulfate 90 Mcg 8 Gm Inhaler) 1 puff INHALE RQ4H PRN PRN Reason: Shortness of Breath Atorvastatin Calcium (Atorvastatin Calcium 40 Mg Tablet) 40 mg PO DAILY [facility] Last Admin: 05/30/25 08:15 Dose: 40 mg Celecoxib (Celecoxib 100 Mg Capsule) 100 mg PO BID [facility] Last Admin: 05/30/25 08:15 Dose: 100 mg Clonidine HCl (Clonidine Hcl 0.1 Mg Tablet) 0.1 mg PO TID PRN; Protocol PRN Reason: W/D symptoms Duloxetine HCl (Duloxetine Hcl 60 Mg Capsule.Dr) 120 mg PO DAILY [facility] Last Admin: 05/30/25 08:15 Dose: 120 mg Hydroxyzine HCl (Hydroxyzine Hcl 50 Mg Tablet) 50 mg PO BEDTIME [facility] Last Admin: 05/29/25 21:17 Dose: 50 mg Hydroxyzine HCl (Hydroxyzine Hcl 50 Mg Tablet) 50 mg PO BID PRN PRN Reason: anxiety Latanoprost (Latanoprost 0.005 % Ophth Arabella 2.5 Ml Drops) 1 drop EYE-BOTH BEDTIME [facility] Last Admin: 05/29/25 21:18 Dose: 1 drop Lisinopril (Lisinopril 20 Mg Tablet) 20 mg PO DAILY [facility]; Protocol Last Admin: 05/30/25 08:15 Dose: 20 mg Magnesium Hydroxide (Milk Of Magnesia 30 Ml Oral.Susp) 30 ml PO DAILY PRN PRN Reason: Constipation Naltrexone HCl (Naltrexone Hcl 50 Mg Tablet) 50 mg PO DAILY [facility] Last Admin: 05/30/25 08:15 Dose: 50 mg Nicotine (Nicotine 21 Mg Patch.Td24) 21 mg TRANSDERMA DAILY PRN PRN Reason: nicotine craving Nicotine Polacrilex (Nicotine Polacrilex 2 Mg Gum) 2 mg BUCCAL Q2H PRN PRN Reason: Nicotine Cravings Olanzapine (Olanzapine 5 Mg Tablet) 5 mg PO BID PRN PRN Reason: agitation Ropinirole HCl (Ropinirole Hcl 1 Mg Tablet) 1 mg PO BEDTIME [facility] Last Admin: 05/29/25 21:16 Dose: 1 mg Thiamine HCl (Thiamine Hcl 100 Mg Tablet) 100 mg PO DAILY [facility] Last Admin: 05/30/25 08:15 Dose: 100 mg Trazodone HCl (Trazodone Hcl 50 Mg Tablet) 50 mg PO BEDTIME MRX1 PRN PRN Reason: Insomnia Trolamine Salicylate (Trolamine Salicylate 10 % Cream 85 Gm Tube) 1 appl TOPICAL QID PRN; Protocol PRN Reason: knee pain Last Admin: 05/29/25 21:18 Dose: 1 appl Allergies Allergies Allergy/AdvReac Type Severity Reaction Status Date / Time No Known Allergies Allergy Verified 05/27/25 17:15 Assessment & Plan Assessment & Plan (1) Depression, unspecified: Status: Acute Code(s): F32.A - Depression, unspecified (2) Alcohol use disorder: Status: Acute Code(s): F10.90 - Alcohol use, unspecified, uncomplicated (3) Cocaine use disorder: Status: Acute Code(s): F14.10 - Cocaine abuse, uncomplicated Plan 05/28: continue cymbalta for depression and anxiety. start naltrexone for AUD. abstain from cocaine. referral for rehab. 05/29: [facility] with ativan protocol; pt has needed only 1 mg of ativan in more than 24H in the hospital, so no taper is warranted. stable otherwise. continue current mgmt. 05/30: Laying in bed. Patient reports feeling depressed but feel like I'm getting better . He reports sleeping well last night. Would like to go to a substance program after discharge; social media designer aware. showered. denies SI/HI/VH/AH. Continue current tx plan. Patient educated on: diagnosis and medication risk/benefits Reason for continued inpatient stay Substantial Risk for: med/psych decompensation Time Spent With Patient Time: Total time managing care of this patient today _20___ minutes.
[2025-05-30] MEDS: Trolamine Salicylate 10 % Cream 85 GM TUBE 1 APPL TOPICAL (20:54)
[2025-05-30] MEDS: Latanoprost 0.005 % Ophth Sol 2.5 ML DROPS 1 DROP EYE-BOTH (20:54)
[2025-05-30 21:00] VITALS: BP 135/77; PULSE 90; RESP 16; TEMP 36.3; O2SAT 99
[2025-05-31 07:32] VITALS: BP 110/70; PULSE 63; RESP 16; TEMP 36.4; O2SAT 98
--- NOTE | 2025-05-31 10:31 | HO.PSYCHPN ---
Subjective Subjective Date of Service: 05/31/25 Reason For Visit: Depressive d/o Subjective Notes: Conditional Voluntary Interim History: Continues to lay in bed. Patient reports feeling depressed but I'll be alright ; denies SI/HI/VH/AH. not attending groups. Pt reports [facility] he does not get accepted into a [facility] Continue current tx plan. Medication Compliance: Yes Side effects from medications: No Attending Groups: No Mental Status Exam Mental Status Exam Narrative: Pt is alert and oriented; behavior is cooperative and calm; dressed in casual attire; mood is described as getting better ; eye contact appropriate; Speech is normal rate, volume and not pressured; thought process is organized; Thought content is on tx; denies SI/HI/VH/AH. Diagnostics Vital Signs (24Hr): Vital Signs - 24 hr 05/30/25 21:00 05/31/25 07:32 Temperature 97.4 F 97.6 F Pulse Rate 90 63 Respiratory Rate 16 16 Blood Pressure 135/77 110/70 Pulse Oximetry 99 98 Oxygen Delivery Method Room Air Room Air BMI result Body Mass Index 30.7 Labs 05/28/25 08:36 Medications Medications Current Medications Acetaminophen (Acetaminophen 325 Mg Tablet) 650 mg PO Q4H PRN PRN Reason: Headache/Pain, Scale 1-10 Last Admin: 05/30/25 20:51 Dose: 650 mg Al Hydroxide/Mg Hydroxide (Magnesium Hydrox/Alum Hydrox 30 Ml Oral.Susp) 30 ml PO Q6H PRN PRN Reason: Heartburn/Nausea Albuterol Sulfate (Albuterol Sulfate 90 Mcg 8 Gm Inhaler) 1 puff INHALE RQ4H PRN PRN Reason: Shortness of Breath Atorvastatin Calcium (Atorvastatin Calcium 40 Mg Tablet) 40 mg PO DAILY [facility] Last Admin: 05/31/25 08:36 Dose: 40 mg Celecoxib (Celecoxib 100 Mg Capsule) 100 mg PO BID [facility] Last Admin: 05/31/25 08:36 Dose: 100 mg Clonidine HCl (Clonidine Hcl 0.1 Mg Tablet) 0.1 mg PO TID PRN; Protocol PRN Reason: W/D symptoms Duloxetine HCl (Duloxetine Hcl 60 Mg Capsule.) 120 mg PO DAILY [facility] Last Admin: 05/31/25 08:36 Dose: 120 mg Hydroxyzine HCl (Hydroxyzine Hcl 50 Mg Tablet) 50 mg PO BEDTIME [facility] Last Admin: 05/30/25 20:52 Dose: 50 mg Hydroxyzine HCl (Hydroxyzine Hcl 50 Mg Tablet) 50 mg PO BID PRN PRN Reason: anxiety Latanoprost (Latanoprost 0.005 % Ophth Arabella 2.5 Ml Drops) 1 drop EYE-BOTH BEDTIME [facility] Last Admin: 05/30/25 20:54 Dose: 1 drop Lisinopril (Lisinopril 20 Mg Tablet) 20 mg PO DAILY [facility]; Protocol Last Admin: 05/31/25 08:35 Dose: 20 mg Magnesium Hydroxide (Milk Of Magnesia 30 Ml Oral.Susp) 30 ml PO DAILY PRN PRN Reason: Constipation Naltrexone HCl (Naltrexone Hcl 50 Mg Tablet) 50 mg PO DAILY [facility] Last Admin: 05/31/25 08:36 Dose: 50 mg Nicotine (Nicotine 21 Mg Patch.Td24) 21 mg TRANSDERMA DAILY PRN PRN Reason: nicotine craving Nicotine Polacrilex (Nicotine Polacrilex 2 Mg Gum) 2 mg BUCCAL Q2H PRN PRN Reason: Nicotine Cravings Olanzapine (Olanzapine 5 Mg Tablet) 5 mg PO BID PRN PRN Reason: agitation Ropinirole HCl (Ropinirole Hcl 1 Mg Tablet) 1 mg PO BEDTIME [facility] Last Admin: 05/30/25 20:52 Dose: 1 mg Thiamine HCl (Thiamine Hcl 100 Mg Tablet) 100 mg PO DAILY [facility] Last Admin: 05/31/25 08:36 Dose: 100 mg Trazodone HCl (Trazodone Hcl 50 Mg Tablet) 50 mg PO BEDTIME MRX1 PRN PRN Reason: Insomnia Trolamine Salicylate (Trolamine Salicylate 10 % Cream 85 Gm Tube) 1 appl TOPICAL QID PRN; Protocol PRN Reason: knee pain Last Admin: 05/30/25 20:54 Dose: 1 appl Allergies Allergies Allergy/AdvReac Type Severity Reaction Status Date / Time No Known Allergies Allergy Verified 05/27/25 17:15 Assessment & Plan Assessment & Plan (1) Depression, unspecified: Status: Acute Code(s): F32.A - Depression, unspecified (2) Alcohol use disorder: Status: Acute Code(s): F10.90 - Alcohol use, unspecified, uncomplicated (3) Cocaine use disorder: Status: Acute Code(s): F14.10 - Cocaine abuse, uncomplicated Plan 05/28: continue cymbalta for depression and anxiety. start naltrexone for AUD. abstain from cocaine. referral for rehab. 05/29: DC [facility] with ativan protocol; pt has needed only 1 mg of ativan in more than 24H in the hospital, so no taper is warranted. stable otherwise. continue current mgmt. 05/30: Laying in bed. Patient reports feeling depressed but feel like I'm getting better . He reports sleeping well last night. Would like to go to a substance program after discharge; nursing home social worker aware. showered. denies SI/HI/VH/AH. Continue current tx plan. 05/31: Continues to lay in bed. Patient reports feeling depressed but I'll be alright ; denies SI/HI/VH/AH. not attending groups. Pt reports [facility] he does not get accepted into a [facility] Continue current tx plan. Patient educated on: diagnosis, medication risk/benefits and therapeutic strategies Reason for continued inpatient stay Substantial Risk for: med/psych decompensation Time Spent With Patient Time: Total time managing care of this patient today _20___ minutes.
[2025-05-31 19:50] VITALS: BP 126/74; PULSE 97; RESP 16; TEMP 36.3; O2SAT 98
[2025-05-31] MEDS: Latanoprost 0.005 % Ophth Sol 2.5 ML DROPS 1 DROP EYE-BOTH (21:09)
[2025-05-31] MEDS: Trolamine Salicylate 10 % Cream 85 GM TUBE 1 APPL TOPICAL (23:08)
[2025-06-01 08:00] VITALS: BP 136/77; TEMP 36.6; O2SAT 99
--- NOTE | 2025-06-01 14:47 | P.PNPSI_ITS ---
Subjective Subjective Date of Service: 06/01/25 Reason For Visit: Depressive d/o Subjective Notes: Conditional Voluntary Interim History: Continues to lay in bed during the day and more active in the evening. Patient reports feeling a little better today; denies SI/HI/VH/AH. not attending groups, however he was encouraged to attend and not stay in bed. Pt was not accepted into a program and plan to go to stay with his friend in [place], [place]. Continue current tx plan. Medication Compliance: Yes Side effects from medications: No Attending Groups: No Mental Status Exam Mental Status Exam Narrative: Pt is alert and oriented; behavior is cooperative and calm; dressed in casual attire; mood is described as getting better ; eye contact appropriate; Speech is normal rate, volume and not pressured; thought process is organized; Thought content is on discharge; denies SI/HI/VH/AH. Diagnostics Vital Signs (24Hr): Vital Signs - 24 hr 05/31/25 19:50 06/01/25 08:00 Temperature 97.4 F 98 F Pulse Rate 97 Respiratory Rate 16 Blood Pressure 126/74 136/77 Pulse Oximetry 98 99 Oxygen Delivery Method Room Air Room Air BMI result Body Mass Index 30.7 Labs 05/28/25 08:36 Medications Medications Current Medications Acetaminophen (Acetaminophen 325 Mg Tablet) 650 mg PO Q4H PRN PRN Reason: Headache/Pain, Scale 1-10 Last Admin: 05/31/25 21:08 Dose: 650 mg Al Hydroxide/Mg Hydroxide (Magnesium Hydrox/Alum Hydrox 30 Ml Oral.Susp) 30 ml PO Q6H PRN PRN Reason: Heartburn/Nausea Albuterol Sulfate (Albuterol Sulfate 90 Mcg 8 Gm Inhaler) 1 puff INHALE RQ4H PRN PRN Reason: Shortness of Breath Atorvastatin Calcium (Atorvastatin Calcium 40 Mg Tablet) 40 mg PO DAILY [facility] Last Admin: 06/01/25 08:56 Dose: 40 mg Celecoxib (Celecoxib 100 Mg Capsule) 100 mg PO BID [facility] Last Admin: 06/01/25 08:56 Dose: 100 mg Clonidine HCl (Clonidine Hcl 0.1 Mg Tablet) 0.1 mg PO TID PRN; Protocol PRN Reason: W/D symptoms Duloxetine HCl (Duloxetine Hcl 60 Mg Capsule.Dr) 120 mg PO DAILY [facility] Last Admin: 06/01/25 08:56 Dose: 120 mg Hydroxyzine HCl (Hydroxyzine Hcl 50 Mg Tablet) 50 mg PO BEDTIME [facility] Last Admin: 05/31/25 21:07 Dose: 50 mg Hydroxyzine HCl (Hydroxyzine Hcl 50 Mg Tablet) 50 mg PO BID PRN PRN Reason: anxiety Latanoprost (Latanoprost 0.005 % Ophth Arabella 2.5 Ml Drops) 1 drop EYE-BOTH BEDTIME [facility] Last Admin: 05/31/25 21:09 Dose: 1 drop Lisinopril (Lisinopril 20 Mg Tablet) 20 mg PO DAILY [facility]; Protocol Last Admin: 06/01/25 08:56 Dose: 20 mg Magnesium Hydroxide (Milk Of Magnesia 30 Ml Oral.Susp) 30 ml PO DAILY PRN PRN Reason: Constipation Naltrexone HCl (Naltrexone Hcl 50 Mg Tablet) 50 mg PO DAILY [facility] Last Admin: 06/01/25 08:56 Dose: 50 mg Nicotine (Nicotine 21 Mg Patch.Td24) 21 mg TRANSDERMA DAILY PRN PRN Reason: nicotine craving Nicotine Polacrilex (Nicotine Polacrilex 2 Mg Gum) 2 mg BUCCAL Q2H PRN PRN Reason: Nicotine Cravings Olanzapine (Olanzapine 5 Mg Tablet) 5 mg PO BID PRN PRN Reason: agitation Ropinirole HCl (Ropinirole Hcl 1 Mg Tablet) 1 mg PO BEDTIME [facility] Last Admin: 05/31/25 21:07 Dose: 1 mg Thiamine HCl (Thiamine Hcl 100 Mg Tablet) 100 mg PO DAILY [facility] Last Admin: 06/01/25 08:56 Dose: 100 mg Trazodone HCl (Trazodone Hcl 50 Mg Tablet) 50 mg PO BEDTIME MRX1 PRN PRN Reason: Insomnia Trolamine Salicylate (Trolamine Salicylate 10 % Cream 85 Gm Tube) 1 appl TOPICAL QID PRN; Protocol PRN Reason: knee pain Last Admin: 05/31/25 23:08 Dose: 1 appl Allergies Allergies Allergy/AdvReac Type Severity Reaction Status Date / Time No Known Allergies Allergy Verified 05/27/25 17:15 Assessment & Plan Assessment & Plan (1) Depression, unspecified: Status: Acute Code(s): F32.A - Depression, unspecified (2) Alcohol use disorder: Status: Acute Code(s): F10.90 - Alcohol use, unspecified, uncomplicated (3) Cocaine use disorder: Status: Acute Code(s): F14.10 - Cocaine abuse, uncomplicated Plan 05/28: continue cymbalta for depression and anxiety. start naltrexone for AUD. abstain from cocaine. referral for rehab. 05/29: [facility] with ativan protocol; pt has needed only 1 mg of ativan in more than 24H in the hospital, so no taper is warranted. stable otherwise. continue current mgmt. 05/30: Laying in bed. Patient reports feeling depressed but feel like I'm getting better . He reports sleeping well last night. Would like to go to a substance program after discharge; social work administrator aware. showered. denies SI/HI/VH/AH. Continue current tx plan. 05/31: Continues to lay in bed. Patient reports feeling depressed but I'll be alright ; denies SI/HI/VH/AH. not attending groups. Pt reports [facility] does not get accepted [facility] Continue current tx plan. 06/01: Continues to lay in bed during the day and more active in the evening. Patient reports feeling a little better today; denies SI/HI/VH/AH. not attending groups, however he was encouraged to attend and not stay in bed. Pt was not accepted into a program and plan to go to stay with his friend in [place], [place]. Continue current tx plan. Patient educated on: diagnosis, medication risk/benefits and therapeutic strategies Reason for continued inpatient stay Substantial Risk for: med/psych decompensation Time Spent With Patient Time: Total time managing care of this patient today _20___ minutes.
[2025-06-01] MEDS: Trolamine Salicylate 10 % Cream 85 GM TUBE 1 APPL TOPICAL (17:55)
[2025-06-01 19:15] VITALS: BP 129/83; PULSE 116; RESP 16; TEMP 36.9; O2SAT 99
[2025-06-01] MEDS: Latanoprost 0.005 % Ophth Sol 2.5 ML DROPS 1 DROP EYE-BOTH (21:10)
[2025-06-02 07:00] VITALS: BMI 30.6
[2025-06-02 08:00] VITALS: BP 112/66; PULSE 100; RESP 18; TEMP 36.4; O2SAT 98
[2025-06-02 08:34] VITALS: BP 112/66
--- NOTE | 2025-06-02 11:53 | HO.PSYCHPN ---
Subjective Subjective Date of Service: 06/02/25 Reason For Visit: Depressive d/o Subjective Notes: Conditional Voluntary Interim History: Patient reports feeling good today; he reports feeling ready for discharge. denies SI/HI/VH/AH. He reports sleeping well. Pt reports he plans on following up with outpatient providers. Medication Compliance: Yes Side effects from medications: No Attending Groups: No Mental Status Exam Mental Status Exam Narrative: Pt is alert and oriented; behavior is cooperative and calm; dressed in casual attire; mood is described as good ; eye contact appropriate; Speech is normal rate, volume and not pressured; thought process is organized; Thought content is on discharge; denies SI/HI/VH/AH. Diagnostics Vital Signs (24Hr): Vital Signs - 24 hr 06/01/25 19:15 06/02/25 08:00 06/02/25 08:34 Temperature 98.5 F 97.6 F Pulse Rate 116 H 100 Respiratory Rate 16 18 Blood Pressure 129/83 112/66 112/66 Pulse Oximetry 99 98 Oxygen Delivery Method Room Air Room Air BMI result Body Mass Index 30.6 Labs 05/28/25 08:36 Medications Medications Current Medications Acetaminophen (Acetaminophen 325 Mg Tablet) 650 mg PO Q4H PRN PRN Reason: Headache/Pain, Scale 1-10 Last Admin: 06/02/25 08:34 Dose: 650 mg Al Hydroxide/Mg Hydroxide (Magnesium Hydrox/Alum Hydrox 30 Ml Oral.Susp) 30 ml PO Q6H PRN PRN Reason: Heartburn/Nausea Albuterol Sulfate (Albuterol Sulfate 90 Mcg 8 Gm Inhaler) 1 puff INHALE RQ4H PRN PRN Reason: Shortness of Breath Atorvastatin Calcium (Atorvastatin Calcium 40 Mg Tablet) 40 mg PO DAILY [facility] Last Admin: 06/02/25 08:35 Dose: 40 mg Celecoxib (Celecoxib 100 Mg Capsule) 100 mg PO BID [facility] Last Admin: 06/02/25 08:36 Dose: 100 mg Clonidine HCl (Clonidine Hcl 0.1 Mg Tablet) 0.1 mg PO TID PRN; Protocol PRN Reason: W/D symptoms Duloxetine HCl (Duloxetine Hcl 60 Mg Capsule.Dr) 120 mg PO DAILY [facility] Last Admin: 06/02/25 08:35 Dose: 120 mg Hydroxyzine HCl (Hydroxyzine Hcl 50 Mg Tablet) 50 mg PO BEDTIME [facility] Last Admin: 06/01/25 21:09 Dose: 50 mg Hydroxyzine HCl (Hydroxyzine Hcl 50 Mg Tablet) 50 mg PO BID PRN PRN Reason: anxiety Latanoprost (Latanoprost 0.005 % Ophth Arabella 2.5 Ml Drops) 1 drop EYE-BOTH BEDTIME JET Last Admin: 06/01/25 21:10 Dose: 1 drop Lisinopril (Lisinopril 20 Mg Tablet) 20 mg PO DAILY JET; Protocol Last Admin: 06/02/25 08:34 Dose: 20 mg Magnesium Hydroxide (Milk Of Magnesia 30 Ml Oral.Susp) 30 ml PO DAILY PRN PRN Reason: Constipation Naltrexone HCl (Naltrexone Hcl 50 Mg Tablet) 50 mg PO DAILY JET Last Admin: 06/02/25 08:36 Dose: 50 mg Nicotine (Nicotine 21 Mg Patch.Td24) 21 mg TRANSDERMA DAILY PRN PRN Reason: nicotine craving Nicotine Polacrilex (Nicotine Polacrilex 2 Mg Gum) 2 mg BUCCAL Q2H PRN PRN Reason: Nicotine Cravings Olanzapine (Olanzapine 5 Mg Tablet) 5 mg PO BID PRN PRN Reason: agitation Ropinirole HCl (Ropinirole Hcl 1 Mg Tablet) 1 mg PO BEDTIME JET Last Admin: 06/01/25 21:09 Dose: 1 mg Thiamine HCl (Thiamine Hcl 100 Mg Tablet) 100 mg PO DAILY [facility] Last Admin: 06/02/25 08:35 Dose: 100 mg Trazodone HCl (Trazodone Hcl 50 Mg Tablet) 50 mg PO BEDTIME MRX1 PRN PRN Reason: Insomnia Trolamine Salicylate (Trolamine Salicylate 10 % Cream 85 Gm Tube) 1 appl TOPICAL QID PRN; Protocol PRN Reason: knee pain Last Admin: 06/01/25 17:55 Dose: 1 appl Allergies Allergies Allergy/AdvReac Type Severity Reaction Status Date / Time No Known Allergies Allergy Verified 05/27/25 17:15 Assessment & Plan Assessment & Plan (1) Depression, unspecified: Status: Acute Code(s): F32.A - Depression, unspecified (2) Alcohol use disorder: Status: Acute Code(s): F10.90 - Alcohol use, unspecified, uncomplicated (3) Cocaine use disorder: Status: Acute Code(s): F14.10 - Cocaine abuse, uncomplicated Plan 05/28: continue cymbalta for depression and anxiety. start naltrexone for AUD. abstain from cocaine. referral for rehab. 05/29: DC [facility] with ativan protocol; pt has needed only 1 mg of ativan in more than 24H in the hospital, so no taper is warranted. stable otherwise. continue current mgmt. 05/30: Laying in bed. Patient reports feeling depressed but feel like I'm getting better . He reports sleeping well last night. Would like to go to a substance program after discharge; social services director aware. showered. denies SI/HI/VH/AH. Continue current tx plan. 05/31: Continues to lay in bed. Patient reports feeling depressed but I'll be alright ; denies SI/HI/VH/AH. not attending groups. Pt reports if he does not get accepted into a program he would go to the halfway. Continue current tx plan. 06/01: Continues to lay in bed during the day and more active in the evening. Patient reports feeling a little better today; denies SI/HI/VH/AH. not attending groups, however he was encouraged to attend and not stay in bed. Pt was not accepted into a program and plan to go to stay with his friend in [place], [place]. Continue current tx plan. 06/02: Patient reports feeling good today; he reports feeling ready for discharge. denies SI/HI/VH/AH. He reports sleeping well. Pt reports he plans on following up with outpatient providers Patient educated on: diagnosis and medication risk/benefits Reason for continued inpatient stay Substantial Risk for: stable for discharge Time Spent With Patient Time: Total time managing care of this patient today __20__ minutes.
[2025-06-02 20:00] VITALS: BP 108/73; PULSE 123; RESP 18; TEMP 37.3; O2SAT 100
[2025-06-02 20:35] VITALS: PULSE 89
[2025-06-03 07:56] VITALS: BP 120/83; PULSE 122; RESP 18; TEMP 36.4; O2SAT 98
--- NOTE | 2025-06-03 09:24 | P.DS_ITS ---
DS: Providers Provider Date of Service: 06/03/25 Date of admission: 05/27/25 16:41 Date of discharge: 06/03/25 Primary care physician: Unknown Physician Attending physician on admission: Marlon Blanco Consults: 05/27/25 17:17 Consult to Hospitalist Routine Comment: Consulting Provider: [facility] Hospitalists Reason For Exam: New external admit H&P 05/27/25 18:40 Addiction Medicine Provider Routine Consulting Provider: Addiction Covering Reason for consultation: Alcohol and GAEL use Has provider been notified: No Attending physician on discharge: Mario Nicolas Discharging clinician: Angela Ham DS: Diagnosis Discharge Diagnosis (1) Depression, unspecified: Status: Acute (2) Alcohol use disorder: Status: Acute (3) Cocaine use disorder: Status: Acute DS: Medications Discharge Medications Home Medications: Previous Rx's ?Medication ?Instructions ?Recorded atorvastatin 40 mg tablet 40 mg PO DAILY 30 days #30 t abs 06/02/25 celecoxib 100 mg capsule 100 mg PO BID 30 days #60 ca ps 06/02/25 duloxetine 60 mg capsule,delayed 120 mg (2 x 60 mg) PO DAILY 30 06/02/25 release days #60 caps hydroxyzine HCl 50 mg PO BEDTIME 30 days #30 tabs 06/02/25 hydroxyzine HCl 50 mg tablet 50 mg PO BEDTIME 30 days #30 tabs 06/02/25 latanoprost 0.005 % eye drops 1 drp ophthalmic (eye) B EDTIME 30 06/02/25 days #2.5 mL lisinopril 20 mg tablet 20 mg PO DAILY 30 days #30 t abs 06/02/25 naltrexone 50 mg tablet 50 mg PO DAILY 30 days #30 t abs 06/02/25 ropinirole 1 mg tablet 1 mg PO BEDTIME 30 days #30 tabs 06/02/25 Mental Status Exam Mental Status Exam Narrative: Pt is alert and oriented; behavior is cooperative and calm; dressed in casual attire; mood is described as good ; eye contact appropriate; Speech is normal rate, volume and not pressured; thought process is organized; Thought content is on discharge; denies SI/HI/VH/AH. Data Data Completed and Pending Completed studies during hospitalization [Text1]: 05/28/25 08:36 Sodium 142 Potassium 3.7 Chloride 108 Carbon Dioxide 22 Anion Gap 16 BUN 15 Creatinine 0.65 Estim Creat Clear Calc 133.6 Estimated GFR > 60 Random Glucose 94 Estimat Average Glucose 88 Hemoglobin A1c % 4.7 Calcium 8.9 Total Bilirubin 0.7 AST 25 ALT 23 Alkaline Phosphatase 90 Total Protein 6.9 Albumin 4.4 Triglycerides 198 H Cholesterol 137 LDL Cholesterol, Calc 59 HDL Cholesterol 39 L TSH 0.94 Free T4 0.98 DS: Summary Hospital Course Hospital Course: per OSH ED eval, [facility]; he reported having had 8 or 9 alcoholic drinks the same day. he was transferred to the ED for evaluation. on BH eval in ED, pt reported life stressors as important in his presentation, citing homelessness. he stated, i have a lot of issues and i feel like i'm stuck. he endorsed a sense of hopelessness and was unable to identify what prevented him from harming himself rather than presenting for help. he reported SI to patient relations specialist with thought of overdosing on Rx medications or jumping in front of a train. denied any intent. on interview with MD on M3 at [facility], pt described himself as in a situational depression. he identified the situation as homelessness and lack of social supports. he feels his anti-depressant regimen is generally fine and is not interested in modifying it. he is, however, interested in restarting naltrexone, which he has been on in the past, for AUD. he is also very keen on help getting into a rehab. he reports his mood has improved over the past several days, and he denies any SI presently. continue cymbalta for depression and anxiety. start naltrexone for AUD. abstain from cocaine. referral for rehab. [facility] with ativan protocol; pt has needed only 1 mg of ativan in more than 24H in the hospital, so no taper is warranted. stable otherwise. continue current mgmt. Laying in bed. Patient reports feeling depressed but feel like I'm getting better . He reports sleeping well last night. Would like to go to a substance program after discharge; protective services social worker aware. showered. denies SI/HI/VH/AH. Continue current tx plan. Continues to lay in bed. Patient reports feeling depressed but I'll be alright ; denies SI/HI/VH/AH. not attending groups. Pt reports if he does not get accepted into a program he would go to the care home. Continue current tx plan. Continues to lay in bed during the day and more active in the evening. Patient reports feeling a little better today; denies SI/HI/VH/AH. not attending groups, however he was encouraged to attend and not stay in bed. Pt was not accepted into a program and plan to go to stay with his friend in [place], [place]. Continue current tx plan. Patient reports feeling good today; he reports feeling ready for discharge. denies SI/HI/VH/AH. He reports sleeping well. Pt reports he plans on following up with outpatient providers Status at Discharge Cognitive/behavioral status at discharge: Patient has insight and demonstrates good judgment in terms of wanting to pursue treatment. Patient has a safety plan that includes presenting to the closest ER or calling 911 if feeling unsafe. Functional status at discharge: uses cane/walker Overall status at discharge: patient is back to baseline Time Spent with Patient Time attestation: Total time managing care of this patient today _20___ minutes. Time spent: Less than 30 minutes Discharge Plan Discharge Anticipated Discharge Date/Time: 06/03/25 11:00 Patient Disposition: Home, Self-Care Discharge Diagnosis: MDD, Alcohol use d/o, cocaine use d/o Referrals: [facility] [Other] - 1 Week Referral Note: walk in hours are Friday-Friday 8am-8pm and Friday and Friday 9am-5pm. [facility] [Other] - 1 Week Referral Note: 06-02-25 Called and left a for return call to schedule a follow up appt. If no call back occurs prior to discharge please call your Primary Care Provider to schedule a follow up visit within 7-10 days of discharge. Discharge Medications: New naltrexone 50 mg Tablet 50 mg PO DAILY 30 Days Qty: 30 0RF latanoprost 0.005 % Drops 1 drp ophthalmic (eye) BEDTIME 30 Days Qty: 2.5 0RF hydroxyzine HCl 50 mg Tablet 50 mg PO BEDTIME 30 Days Qty: 30 0RF Continued atorvastatin 40 mg tablet 40 mg PO DAILY 30 Days Qty: 30 0RF ropinirole 1 mg tablet 1 mg PO BEDTIME 30 Days Qty: 30 0RF lisinopril 20 mg tablet 20 mg PO DAILY 30 Days Qty: 30 0RF celecoxib 100 mg capsule 100 mg PO BID 30 Days Qty: 60 0RF duloxetine 60 mg capsule,delayed release(DR/EC) 120 mg PO DAILY 30 Days Qty: 60 0RF hydroxyzine HCl 50 mg tablet 50 mg PO BEDTIME 30 Days Qty: 30 0RF Discontinued hydroxyzine HCl 25 mg tablet 25 mg PO TID Discharge Orders: Discharge Order (Routine); Ordered 06/03/25 Ordered By: Angela Ham Diet: Regular diet Activity on Discharge: As tolerated Stand Alone Forms: Patient Portal Discharge page, Community Support Print Language: Zambian Care Plan Goals: Maintain mood and safe behaviors Take medications as prescribed Continue to pursue sobriety Practice coping skills Continue with outpatient providers and reach out to them as needed Health Concerns: Mood stability and behaviors Sobriety Plan of Treatment: Follow up with your PCP, psychiatric provider and other outpatient providers regarding above concerns Take medications as prescribed Assessment: Patient has insight and demonstrates good judgment in terms of wanting to pursue treatment. Patient has a safety plan that includes presenting to the closest ER or calling 911 if feeling unsafe. Discharge Date/Time: 06/03/25 10:12
== END 2025-06-03 10:12 | disposition home or self-care (01) | DRG 881 ==
PROVIDERS: Nurse Practitioner Psychiatric/Mental Health; Admitting Provider Psychiatry & Neurology Psychiatry; Responsible Provider Registered Nurse; Visit Provider Psychiatry & Neurology Psychiatry
DX: F32.9 Major depressive disorder, single episode, unspecified (principal); Z59.02 Unsheltered homelessness; R45.851 Suicidal ideations; I10 Essential (primary) hypertension; E78.5 Hyperlipidemia, unspecified; F17.210 Nicotine dependence, cigarettes, uncomplicated; Z71.6 Tobacco abuse counseling; F14.10 Cocaine abuse, uncomplicated; F10.90 Alcohol use, unspecified, uncomplicated; Z79.899 Other long term (current) drug therapy
CPT/HCPCS: 36415; 80053; 80061; 83036; 84439; 84443

== ENCOUNTER → 2025-05-27 16:41 | Outpatient (BNV) | payer MEDICARE, SELFPAY | PROVIDERS: Admitting Provider Psychiatry & Neurology Psychiatry; Visit Provider Internal Medicine | DX: I10 Essential (primary) hypertension (principal); E78.5 Hyperlipidemia, unspecified | CPT/HCPCS: 99222 ==

== ENCOUNTER → 2025-05-27 16:41 | Outpatient (BNV) | payer MEDICARE, SELFPAY | PROVIDERS: Admitting Provider Psychiatry & Neurology Psychiatry; Visit Provider Psychiatry & Neurology Psychiatry | DX: F32.2 Major depressive disorder, single episode, severe without psychotic features (principal); F14.10 Cocaine abuse, uncomplicated; F10.90 Alcohol use, unspecified, uncomplicated | CPT/HCPCS: 90792; 99231; 99232 ==